=== PATIENT | female | born 1975 | race Caucasian/White ===

== ENCOUNTER 2021-04-14 16:04 | Outpatient (REF) | payer BC, SELFPAY ==
[2021-04-14 14:48] LABS: Abs Immature Grans 0.01 10^3/uL (0.0-0.06); Absolute Basophil Count 0.08 10^3/uL (0.0-0.2); Absolute Eosinophil Count 0.19 10^3/uL (0.0-0.7); Absolute Lymphocyte Count 1.69 10^3/uL (1.2-3.4); Absolute Neutrophil Count 3.74 10^3/uL (1.2-6.7); Basophils % 1.2; HCT 40.3 % (36.0-46.0); Immature Grans % 0.2; Lymphocytes % 26.4; MCHC 32.3 % (32.0-36.0); MCV 89.8 fL (80-95); MPV 11.6 fL (8.0-11.0); Monocytes % 10.9; Neutrophils % 58.3; Nucleated RBC 0 %; Platelet Count 304 10^3/uL (130-400); RBC 4.49 10^6/uL (3.93-5.22); RDW 13.5 % (11.7-14.6); RDW-SD 44.6 fL; WBC 6.41 10^3/uL (4.4-10.8)
[2021-04-14 14:49] LABS: ESR 1 mm/hr (0-20)
[2021-04-14 15:16] LABS: ALT 8 U/L (14-59); AST 9 U/L (15-37); Alkaline Phosphatase 58 U/L (46-116); Anion Gap 7.2 mmol/L (3-11); BUN 8 mg/dL (7-18); Bilirubin, Total 0.5 mg/dL (0.2-1.0); CO2 27.8 mmol/L (21.0-32.0); CREATININE 0.9 mg/dL (0.55-1.02); Calcium 9.1 mg/dL (8.5-10.1); Chloride 108 mmol/L (98-107); Glucose 86 mg/dL (74-106); Potassium 4.6 mmol/L (3.5-5.1); Sodium 143 mmol/L (136-145); TSH (W/Ref FT4) 1.05 uIU/mL (0.36-3.74)
== END 2021-04-14 16:05 | disposition home or self-care (01) ==
LOC: NCHCN 16:04
PROVIDERS: Visit Provider Family Medicine
DX: R53.83 Other fatigue (principal); Z86.16 Personal history of COVID-19; R06.00 Dyspnea, unspecified
CPT/HCPCS: 80053; 85652; 84443; 85025

== ENCOUNTER 2021-12-06 18:30 | Outpatient (REF) | payer BC, SELFPAY ==
[2021-12-06 16:27] LABS: Abs Immature Grans 0.02 10^3/uL (0.0-0.06); Absolute Basophil Count 0.08 10^3/uL (0.0-0.2); Absolute Eosinophil Count 0.34 10^3/uL (0.0-0.7); Absolute Lymphocyte Count 1.58 10^3/uL (1.2-3.4); Absolute Monocyte Count 0.68 10^3/uL (0.1-0.8); Absolute Neutrophil Count 3.84 10^3/uL (1.2-6.7); Basophils % 1.2; Eosinophils % 5.2; HCT 43.4 % (36.0-46.0); HGB 14.6 g/dL (11.2-15.7); Immature Grans % 0.3; Lymphocytes % 24.2; MCH 31.7 pg (27.0-33.0); MCHC 33.6 % (32.0-36.0); MCV 94 fL (80-95); MPV 11.5 fL (8.0-11.0); Monocytes % 10.4; Neutrophils % 58.7; Platelet Count 295 10^3/uL (130-400); RBC 4.61 10^6/uL (3.93-5.22); RDW 12.6 % (11.7-14.6); RDW-SD 43.8 fL; WBC 6.54 10^3/uL (4.4-10.8)
[2021-12-06 16:29] LABS: ESR 3 mm/hr (0-20)
[2021-12-06 19:19] LABS: C-Reactive Protein 0.08 mg/dL (0.0-0.3)
[2021-12-07 17:59] LABS: Rheumatoid Factor <8.6 IU/mL (<12.0)
[2021-12-08 10:54] LABS: Lyme Ab w Rflx to Lyme Confirm Negative (Negative)
[2021-12-08 15:24] LABS: ANA Interpretation Negative (Negative)
[2021-12-08 22:35] LABS: Anaplasma phagocytophilum Negative (Negative); B. miyamotoi PCR Negative (Negative); Babesia divergens/MO-1 Negative (Negative); Babesia duncani Negative (Negative); Babesia microti Negative (Negative); Ehrlichia chaffeensis Negative (Negative); Ehrlichia ewingii/canis Negative (Negative); Ehrlichia muris eauclairensis Negative (Negative)
== END 2021-12-06 18:31 | disposition home or self-care (01) ==
LOC: NCHCN 18:30
PROVIDERS: Visit Provider Family Medicine
DX: R53.83 Other fatigue (principal); M25.59 Pain in other specified joint
CPT/HCPCS: 85652; 87798; 85025; 86038; 86140; 86431; 86618

== ENCOUNTER 2022-05-19 14:50 | Outpatient (REF) | payer BC, SELFPAY | END 2022-05-19 14:51 | disposition home or self-care (01) | LOC: LBN 14:50 | PROVIDERS: Visit Provider Physician Assistant Medical | DX: J06.9 Acute upper respiratory infection, unspecified (principal) | CPT/HCPCS: 87081 ==

== ENCOUNTER 2023-06-24 08:57 | Day surgery (SDC) | payer BC, SELFPAY ==
--- NOTE | 2023-06-23 17:00 | W.PM.DSUDISC ---
Date of service: 06/24/23 Time of Service: 12:18 Discharge Plan Disposition Patient Disposition: Home Condition: Good Discharge Details Reason For Visit: screening colonoscopy Attending Provider: Del Woodall Primary Care Provider: Debbie Amaral Home Meds and New Rx's Prescriptions: Continued Probiotic Acidophilus 250 million cell capsule 1,000 mmu cells PO DAILY jd-7-qge-epa-fish oil-vit D3 [Fish Oil-Vit D3] 300-1,000-1,000 mg-mg-unit capsule PO multivitamin Tablet 1 tab PO DAILY Mirena 21 mcg/24 hours (8 yrs) 52 mg intrauterine device 1 device intrauterine ONCE Rx Instructions: as a single dose bupropion HCl 150 mg tablet sustained-release 12 hr 150 mg PO BID valacyclovir 500 mg tablet 500 mg PO DAILY PRN Discontinued bisacodyl [Dulcolax (bisacodyl)] 5 mg tablet,delayed release (DR/EC) 5 mg PO ONCE Qty: 4 0RF Rx Instructions: Colonoscopy Bowel Prep- Per Instructions polyethylene glycol 3350 17 gram/dose powder 238 g PO ONCE Qty: 238 0RF Rx Instructions: Colonoscopy Bowel Prep- Per Instructions Discharge Instructions Additional Instructions: Ana, we were able to complete your colonoscopy today without any difficulty. It was totally normal. I saw no evidence of polyps, tumors, or anything else out of the ordinary. I recommend a follow-up colonoscopy in 10 years to reduce her chances of colon cancer . 1. If tolerated, consume a soft, low fiber diet for 1-2 days. [address] Do not drive, drink alcohol, operate machinery, make critical decisions, or do activities that require coordination or balance for 24 hours. 3. Because air was put into your colon during the procedure, expelling air from your rectum (passing gas or farting) is normal. 4. You may not have a bowel movement for 1-3 days because of the colonoscopy prep. This is normal. 5. Go directly to the emergency room if you notice any of the following: Develop chills (warm to touch), or if you have a thermometer and your temperature is above 101 Difficulty breathing or difficultly swallowing Persistent vomiting Severe abdominal pain, other than gas cramps Severe chest pain Black, tarry stools Any bleeding ? exceeding one tablespoon 6. Call your physician if the site where your intravenous was started becomes red, swollen, painful, and warm to touch. 7. Your physician has reviewed your pre-procedure medications. Please continue to take those medications as previously ordered. You will be given specific information/education regarding any changes to your medications before leaving. Stand Alone Forms: Anesthesia Discharge InstEze Arshad (DSU) Activity:: Activity as Tolerated Diet:: As Tolerated Discharge Orders Discharge Orders: Discharge Order (Routine); Ordered 06/23/23 Ordered By: Del Woodall DS: Diagnosis Discharge Diagnosis (1) Screen for colon cancer: Status: Acute Asessment and Plan: Negative screening colonoscopy; recommend follow-up in 10 years
--- NOTE | 2023-06-23 17:02 | W.COLOREPORT ---
Date of service: 06/24/23 Time of Service: 12:19 Colonoscopy Report Date of procedure: 06/24/23 Pre-op diagnosis general: screening colonoscopy Post-op diagnosis procedure note: other (Negative screening colonoscopy) Procedure: Colonoscopy Surgeon: Del Woodall Anesthesia Type: General:No Airway Estimated blood loss (mL): 0 Pathology: none sent Complications: None Disposition: same day Indications: Ana is 48 years old and she needs her first screening colonoscopy for routine health maintanence. Prep: Miralax/Dulcolax Procedure Start Time: 11:38 Procedure End Time: 12:07 Retraction Time: 19 Findings: Negative screening colonoscopy Procedure Description: After the induction of monitored anesthetic care, and with the patient in left lateral decubitus position, I began by performing an external anorectal exam.? Perineum and skin were normal, as was the anal verge.? There was no evidence of external hemorrhoids.? Next, I performed a digital rectal exam.? I did not appreciate any abnormal findings.? Next, I advanced a colonoscope into the rectal vault.? I performed retroflexion.? This was normal.? Using insufflation, I then advanced the colonoscope beyond the rectal folds and into the sigmoid colon before advancing towards the cecum.?The scope was noted to be in the cecum by identification of the ileocecal valve and appendiceal orifice.? I then began withdrawing the colonoscope using repeated irrigation as necessary for full evaluation of the colonic mucosa. ?Once the scope was withdrawn to the level of the rectum, great care was taken to examine portions of the rectal folds.? I did not see any signs of tumors, polyps, or any other abnormalities. Finally, the scope was withdrawn and the patient was brought to the same-day surgery recovery unit as the anesthetic wore off. ?The findings and instructions were shared with the patient prior to discharge.
[2023-06-24 09:20] VITALS: BP 116/79; PULSE 85; RESP 18; TEMP 36.9; O2SAT 100
[2023-06-24] MEDS: Lactated Ringers 1,000 ML 80 ML IV (09:56)
--- NOTE | 2023-06-24 10:40 | W.ANESPRE ---
General Info Date of Service Date Performed: 06/24/23 Height: 5 ft 9 in Weight: 79 kg Body Mass Index (BMI): 25.7 Surgical Procedure: Operation Date: 06/24/23 10:50 Proposed Procedure Side Surgeon vincent Woodall MD Meds Allergies and Home Medications Allergies Allergy/AdvReac Type Severity Reaction Status Date / Time eggplant Allergy Unknown Uncoded 06/24/23 09:34 Home Medication Medication Instructions Recorded bupropion HCl 150 mg tablet,12 hr 150 mg PO BID 01/03/23 sustained-release levonorgestrel 21 mcg/24 hours (8 1 device intrauterine ONCE 01/03/23 yrs) 52 mg intrauterine device (Mirena) valacyclovir 500 mg tablet 500 mg PO DAILY PRN 01/03/23 Lactobacillus acidophilus 250 1,000 mmu cells PO DAILY 06/12/23 million cell capsule (Probiotic Acidophilus) multivitamin 1 tab PO DAILY 06/12/23 xs-2-nkk-epa-fish oil-vit D3 300 cap PO 06/12/23 mg-1,000 mg-1,000 unit capsule (Fish Oil-Vit D3) Current Visit Medications: Current Medications Generic Name Dose Route Start Last Admin Trade Name Freq PRN Reason Stop Dose Admin Hyoscyamine Sulfate 0.125 mg 06/23/23 17:03 Hyoscyamine 0.125 Mg Sl/Oral/Chew SL 07/23/23 17:02 DIRECTED PRN Ringer's Solution 1,000 mls @ 80 mls/hr 06/24/23 06:00 06/24/23 09:56 IV 07/19/23 23:59 80 mls/hr INFUSION DEVORAH Administration IV Miscellaneous Supplies 1 each 06/24/23 06:00 Iv Access IV 07/19/23 23:59 DIRECTED DEVORAH Ondansetron HCl 4 mg 06/23/23 17:03 Ondansetron 4 Mg/2 Ml Vial IVP 07/23/23 17:02 Q4H PRN PRN Nausea / Vomiting Sodium Chloride 0 ml 06/24/23 06:00 Normal Saline Flush 10 Ml Syr IV 07/19/23 23:59 PRN PRN Sodium Chloride 0 ml 06/24/23 06:00 Normal Saline 10 Ml Vial IJ 07/19/23 23:59 DIRECTED PRN Sterile Water 0 ml 11/27/23 06:00 Water,Injection,Sterile 10 Ml Vial IJ 07/19/23 23:59 DIRECTED PRN PFSH Active Problems Active Problems: Problem Status Onset Code Screen for colon cancer Z12.11 History of use of contraceptive intrauterine device (IUD) Z92.0 Hip pain, right M25.551 Perimenopausal N95.1 Medical History Medical History (Updated 06/23/23 @ 17:00 by Del Woodall MD) History of COVID-19 Tobacco Smoking/Tobacco Use Status: Never Alcohol Alcohol Intake: former Substance Use Substance use type: does not use Vital Signs and Lab Results Vital Signs Most Recent Vital Signs in EMR: Most Recent Vital Signs Temp Pulse Resp BP Pulse Ox 36.9 C 85 18 116/79 100 06/24/23 09:20 06/24/23 09:20 06/24/23 09:20 06/24/23 09:20 06/24/23 09:20 Point of Care Results Point of Care Results: POC- Test(urine) Negative 06/24/23 09:30 Lab Results Blood Type / Crossmatch: No Data to Display Complete Blood Count: No Data to Display Complete Metabolic Panel: No Data to Display Liver Function Panel: No Data to Display Coagulation Panel: No Data to Display Cardiac Panel: No Data to Display Arterial Blood Gas: No Data to Display Venous Blood Gas: No Data to Display Pancreas Panel: No Data to Display Thyroid Panel: No Data to Display Infectious Disease: No Data to Display Blood Cultures: No Data to Display Toxicology Panel: No Data to Display Panel: No Data to Display Anesthesia Assessment and Plan Anesthesia History Personal History: No History of Anesthesia Complications Family History: No Family History of Anesthesia Complications Exercise Tolerance Exercise Tolerance: Metabolic Equivalents>4 Pertinent Negatives Pertinent Negatives: No Symptoms of GERD, No Major Cardiovascular Symptoms or Complaints, No Major Pulmonary Symptoms or Complaints and No History of CVA/TIA Cardiac & Pulmonary Exam Cardiac Exam: Normal S1/S2 Heart Sounds Pulmonary Exam: Clear Bilateral Breath Sounds Implantable Cardiac Device Does patient have a Pacemaker or an ICD?: No Airway Exam Known Difficult Airway: No Mallampati Class: 2 Mouth Opening: Normal (> 3cm) Thyromental Distance: Greater than 3 cm Neck Range of Motion: Full ROM Neck Circumference: Normal Teeth Condition: Normal Dentition ASA Classification ASA Score: ASA 2 Emergency Case?: No NPO Status NPO Status: NPO Clears >2 hours, Solids >8 hours Status Status: Negative HCG Anesthesia Plan Resuscitation Status: Full Code Anesthesia Technique: General Anesthesia Airway Planned: Natural Airway Monitors Used: Standard Monitors Preoperative Comments:: History of motion sickness, loopy coming out of anesthesia from wisdom teeth
[2023-06-24 11:11] VITALS: BMI 25.7
[2023-06-24 12:16] VITALS: BP 100/63; PULSE 87; RESP 14; TEMP 36.6; O2SAT 98
[2023-06-24 12:43] VITALS: BP 111/79; PULSE 69; RESP 16; TEMP 36.6; O2SAT 100
--- NOTE | 2023-06-24 13:15 | W.ANESPOSTOP ---
Postoperative Evaluation Date, Time and Location Date Performed: 06/24/23 Time Performed: 12:58 Patient Location: Day Surgery Unit Vital Signs Most Recent Imported Vital Signs: Most Recent Vital Signs Temp Pulse Resp BP Pulse Ox 36.6 C 69 16 111/79 100 06/24/23 12:43 06/24/23 12:43 06/24/23 12:43 06/24/23 12:43 06/24/23 12:43 Pain Score Most Recent Pain Score: Most Recent Pain Score Pain Level 0 06/24/23 12:43 Assessment Mental Status: Awake (Alert & Oriented to Patient Baseline) Airway and Respiratory Function: Patent airway with normal (patient baseline) respiratory exam Cardiovascular Function: Hemodynamically Stable Hydration Status: Adequately Hydrated Nausea & Vomiting: No Nausea or Vomiting Pain: Pt. Denies Any Pain Peripheral Nerve Block: Patient did not receive a nerve block
== END 2023-06-24 13:39 | disposition home or self-care (01) ==
LOC: SUR 08:59
PROVIDERS: PCP Family Medicine; Visit Provider Surgery
PROC: 0DJD8ZZ Inspection of Lower Intestinal Tract, Via Natural or Artificial Opening Endoscopic (ICD-10-PCS; CPT 45378; principal; 2023-06-24 10:45)
DX: Z12.11 Encounter for screening for malignant neoplasm of colon (principal)
CPT/HCPCS: 45378; 81025; J2405

== ENCOUNTER 2023-07-01 15:21 | Emergency (ER) | payer BC, SELFPAY ==
[2023-07-01 15:23] VITALS: BP 128/75; PULSE 85; RESP 15; TEMP 37.1; O2SAT 98
--- OUTSIDE RECORDS SUMMARY | 2023-07-01 15:27 | XMS_ITS | CCD ---
Author Name Unknown Address [address] [place] [address] [phone] Organization Unknown Address [address] [place] [address] [phone] Care Team Providers Care Ride Attendant Name Role Phone KEN LEYVA Attending Physician [phone] Vital Signs Unknown or Not Available. Allergies Allergy Code Allergy Type Reaction Status EGGPLANT {Clinical monitorin g unavailable} 0 Food allergy ITCHING Active No Known Drug Allergies 0 No known drug allergies Active Procedures Unknown or Not Available. History of Immunizations Unknown or Not Available. Problems Unknown or Not Available. Results Unknown or Not Available. Active Medications Unknown or Not Available. Medications Administered During Visit Unknown or Not Available. Encounters Encounter Diagnosis Diagnosis Code Start Date Frequency of micturition R350 022 Social History Smoking Status Code Start Date End Date Never smoker [id number] Patient Decision Aids Unknown or Not Available. Discharge Instructions You were admitted to [facility] on 12/06/2021 12:48 with a principal diagnosis of Frequency of micturition You were discharged from [facility] on 02/08/2022 09:22 Should you have any questions prior to discharge, please contact a member of your healthcare team. If you have left the hospital and have any questions, please contact your primary care physician. Chief Complaint and Reason For Visit Unknown or Not Available. Function Status Unknown or Not Available. Plan of Care Unknown or Not Available. Referral/Transition of Care Unknown or Not Available.
--- OUTSIDE RECORDS SUMMARY | 2023-07-01 15:27 | XMS_ITS | CCD ---
Author Name Unknown Address [address] [place] [address] [phone] Organization Unknown Address [address] [place], [place] [id number] Care Team Providers Care Industrial Economist Name Role Phone KEN LEYVA Attending Physician [phone] KEN LEYVA Rounding (Secondary) Physici an [phone] Vital Signs Unknown or Not Available. Allergies [...] Encounters Encounter Diagnosis Diagnosis Code Start Date Canceled operative procedure [id number] Social History Smoking Status Code Start Date End Date Never smoker [id number] Patient Decision Aids Unknown or Not Available. Discharge Instructions You were admitted to [facility] on 11/22/2022 08:41 with a principal diagnosis of Procedure and treatment not carried out for other reasons You were discharged from [facility] on 11/22/2022 08:42 Should you have any questions prior to [...]
--- OUTSIDE RECORDS SUMMARY | 2023-07-01 15:27 | XMS_ITS | CCD ---
Author Name Unknown Address [address] [place] [address] [phone] Organization Unknown Address [address] [place], [place] [phone] Care Team Providers Care Senior Receptionist Name Role Phone KEN LEYVA Attending Physician [phone] KEN LEYVA Rounding (Secondary) Physici an [phone] Vital Signs Unknown or Not Available. Allergies [...] Encounters Encounter Diagnosis Diagnosis Code Start Date Encounter for gynecological examination (general) (routine) without abnormal findings [id number] 08/30/2021 Social History Smoking Status Code Start Date End Date Never smoker [id number] Patient Decision Aids Unknown or Not Available. Discharge Instructions You were admitted to [facility] on 08/30/2021 10:10 with a principal diagnosis of Encounter for gynecological examination (general) (routine) without abnormal findings You were discharged from [facility] on 08/30/2021 10:11 Should you have any questions prior to [...]
--- NOTE | 2023-07-01 15:45 | DI.RAD_ITS ---
Exam(s) XR FOOT LT COMPLETE EXAM: XR FOOT LT COMPLETE CLINICAL HISTORY: pain dorsal, impacted by dog. TECHNIQUE: 2D digital imaging was performed. Three views. COMPARISON: No exams were available for comparison FINDINGS: BONES: No acute fracture is present. No bony destructive lesion is seen. JOINTS: No dislocation present. SOFT TISSUE: Normal. IMPRESSION: Unremarkable radiographs of the left foot. DATA REPOSITORY: RADIATION DOSE DELIVERED:
[2023-07-01] MEDS: Amoxicillin 875/Clav. 125 TAB PO (16:01)
--- NOTE | 2023-07-01 16:36 | ED.GENADUL_ITS ---
Discharge Plan Disposition Patient Disposition: Home Condition: Stable Discharge Details Clinical Impression: Dog bite of left foot Primary Care Provider: Debbie Amaral ED Provider: Walter El Home Meds and New Rx's Prescriptions: New amoxicillin-pot clavulanate 875-125 mg tablet 1 tab PO BID Qty: 14 0RF Continued Probiotic Acidophilus 250 million cell capsule 1,000 mmu cells PO DAILY wc-9-yyu-epa-fish oil-vit D3 [Fish Oil-Vit D3] 300-1,000-1,000 mg-mg-unit capsule 1 cap PO DAILY multivitamin Tablet 1 tab PO DAILY Mirena 21 mcg/24 hours (8 yrs) 52 mg intrauterine device 1 device intrauterine ONCE Rx Instructions: as a single dose bupropion HCl 150 mg tablet sustained-release 12 hr 150 mg PO BID valacyclovir 500 mg tablet 500 mg PO DAILY PRN Discharge Instructions Instructions: Animal Bite (ED), Foot Contusion (ED) Additional Instructions: Protect your foot. Use crutches if walking is painful - weight bear as tolerated. Please contact your primary care physician to arrange follow-up. Return to the ER immediately for any worsening or new concerning symptoms. Referrals: Debbie Amaral [Primary Care Provider] - Medical Decision Making 48-year-old female here with accidental dog bite to left foot. Patient sustained small abrasion to the foot and suspected contusion versus fracture dorsal foot. X-ray of the foot to assess for fracture was interpreted by radiology: Unremarkable radiographs of the left foot. Tetanus immunization up-to-date per medical record. Will provide prophylactic treatment with Augmentin. Offered ibuprofen patient declined. Patient provided informed refusal of crutches and postoperative shoe. HPI General Date/Time Provider Initiated Documentation: 07/01/23 15:49 . Related Data Home Medications Medication Instructions Recorded Confirmed bupropion HCl 150 mg tablet,12 hr 150 mg PO BID 01/03/23 07/01/23 sustained-release levonorgestrel 21 mcg/24 hours (8 1 device intrauterine ONCE 01/03/23 07/01/23 yrs) 52 mg intrauterine device (Mirena) valacyclovir 500 mg tablet 500 mg PO DAILY PRN 01/03/23 07/01/23 Lactobacillus acidophilus 250 1,000 mmu cells PO DAILY 06/12/23 07/01/23 million cell capsule (Probiotic Acidophilus) multivitamin 1 tab PO DAILY 06/12/23 07/01/23 ao-9-lad-epa-fish oil-vit D3 300 1 cap PO DAILY 06/12/23 07/01/23 mg-1,000 mg-1,000 unit capsule (Fish Oil-Vit D3) amoxicillin 875 mg-potassium 1 tab PO BID #14 tabs 07/01/23 clavulanate 125 mg tablet Previous Rx's Medication Instructions Recorded amoxicillin 875 mg-potassium 1 tab PO BID #14 tabs 07/01/23 clavulanate 125 mg tablet Allergies Allergy/AdvReac Type Severity Reaction Status Date / Time eggplant Allergy Unknown Uncoded 07/01/23 15:28 General Stated Complaint: Orthopedic MALA: 4 PFSH All Active Problems (Updated 07/01/23 @ 16:38 by Walter El MD) Dog bite of left foot (Acute) Screen for colon cancer (Acute) History of use of contraceptive intrauterine device (IUD) (Acute) Hip pain, right (Acute) Perimenopausal (Acute) Medical History (Updated 07/01/23 @ 16:38 by Walter El MD) History of COVID-19 Surgical History (Updated 06/26/23 @ 07:42 by Francie Escobar) History of colonoscopy (~05/2023) Social History (Updated 06/12/23 @ 15:25 by BRIANA Sarah) Smoking/Tobacco Use Status: Never Smoking risk assessment performed?: Yes Alcohol Intake: current Alcohol Intake frequency: a few times a month Alcohol type: wine Drug use: Never Substance use type: does not use Housing: house Do you feel safe at home: Yes Do you feel safe in your relationship?: Yes Course Vital Signs Vital signs: Vital Signs Temperature 37.1 C 07/01/23 15:23 Pulse 85 07/01/23 15:23 Respiratory Rate 15 07/01/23 15:23 Blood Pressure 128/75 07/01/23 15:23 Pulse Oximetry 98 07/01/23 15:23 Temperature 37.1 C 07/01/23 15:23 Temperature Source Temporal Artery Scan 07/01/23 15:23 Pulse 85 07/01/23 15:23 Respiratory Rate 15 07/01/23 15:23 Respiratory Effort Normal 07/01/23 15:27 Blood Pressure 128/75 07/01/23 15:23 Blood Pressure Position Sitting 07/01/23 15:23 Pulse Oximetry 98 07/01/23 15:23 Oxygen Delivery Method Room Air 07/01/23 15:23 Oxygen Flow Rate 0 07/01/23 15:23 Pain Level 4 07/01/23 15:23 Lab/Test Results Lab/Test Results: POC- Test(urine) Negative PAWSS Have you Been Recently Intoxicated or Drunk Within the Last 30 days?: No Have you Ever Experienced Previous Episodes of Alcohol Withdrawal?: No Have you ever Experienced Withdrawal Seizures?: No Have you ever Experienced Delirium Tremens(DT)s?: No Have you ever undergone Alcohol Rehabilitation Treatment (i.e, inpt ot outpatient treatment programs)?: No Have you ever Experienced Blackouts?: No Have you ever Combined Alcohol with other Downers within the last 90 days?: No Have you ever Combined Alcohol with any other Substance of Abuse during the last 90 days?: No Result: 0
== END 2023-07-01 17:11 | disposition home or self-care (01) ==
PROVIDERS: Emergency Provider Student in an Organized Health Care Education/Training Program; PCP Family Medicine
DX: S90.812A Abrasion, left foot, initial encounter (principal); W54.0XXA Bitten by dog, initial encounter; Y93.K9 Activity, other involving animal care; Y92.017 Garden or yard in single-family (private) house as the place of occurrence of the external cause
CPT/HCPCS: 81025; 99283; 73630

== ENCOUNTER 2023-11-18 14:43 | Outpatient (REF) | payer BC, SELFPAY ==
[2023-11-18 15:35] LABS: ALT 25 U/L (14-59); AST 12 U/L (15-37); Albumin 3.5 g/dL (3.4-5.0); Alkaline Phosphatase 61 U/L (46-116); Anion Gap 8.6 mmol/L (3-11); BUN 15 mg/dL (7-18); Bilirubin, Total 0.3 mg/dL (0.2-1.0); CO2 27.4 mmol/L (21.0-32.0); CREATININE 0.9 mg/dL (0.55-1.02); Calcium 9.1 mg/dL (8.5-10.1); Calculated LDL 77 mg/dL (<100); Chloride 108 mmol/L (98-107); Cholesterol 152 mg/dL (<200); Estimated GFR 79.85 (mL/min/1.73m2); Glucose 92 mg/dL (74-106); HDL Cholesterol 65 mg/dL (40-60); Sodium 144 mmol/L (136-145); Total Protein 6.6 g/dL (6.4-8.2); Triglyceride 52 mg/dL (<150)
[2023-11-18 16:15] LABS: Vitamin D 25 Total 54.2 ng/mL (30-100)
== END 2023-11-18 14:44 | disposition home or self-care (01) ==
LOC: NCHCN 14:43
PROVIDERS: PCP Family Medicine; Visit Provider Family Medicine
DX: Z00.00 Encounter for general adult medical examination without abnormal findings (principal)
CPT/HCPCS: 80053; 80061; 82306

== ENCOUNTER → 2024-03-05 00:58 | Outpatient (CLI) | payer BC, SELFPAY ==
--- NOTE | 2024-03-05 | DI.DEXA_ITS ---
Exam(s) XR DEXA BONE DENSITY W/WO KISHA EXAM: XR DEXA BONE DENSITY W/WO KISHA CLINICAL HISTORY: PERIMENOPAUSAL DISORDER, N95.9 TECHNIQUE: Identification [employer] Horizon C densitometer analysis of left hip, lumbar spine and left forearm. Lat eral survey image of the thoracic and lumbar spine. COMPARISON: No exams were available for comparison FINDINGS: Lateral view of the thoracic and lumbar spine shows no evidence of compression fractures. Bone mineral density measurements of the lumbar spine correspond to a total T-score of -0.2, in the normal range. Bone mineral density measurements of the left hip correspond to a total T-score of -0.2, in the norm al range.. The femoral neck T-score is 0.2. Theleft forearm bone mineral density measurements correspond to a T-score of the distal 3rd of 0.1, in the normal range.. IMPRESSION: Normal bone mineral density.
--- OUTSIDE RECORDS SUMMARY | 2024-03-05 00:59 | XMS_ITS ---
Author Organization Unknown Address [address] [place] [address] [phone] Phone Care Team Providers Care Quality Control Chemist Name Role Phone GORDON Greer Attending Unavailable SIRIA Redd Primary Unavailable Social History Type Status Start Date End Date Code Code Syst em Smoking History Never smoker (Never Smoked) [id number] SNOMED CT Sex Female Hospital Discharge Instructions Should you have any questions prior to discharge, please contact a member of your healthcare team. If you have left the hospital and have any questions, please contact your primary care physician. Reason For Referral No Data Found Allergies and Adverse Reactions Allergy Substance Reaction Severity Start Date Concern Status Code Code System EGGPLANT Itching (SNOMED-CT: [id number]) Moderate Active No Known Drug Allergies Moderate Active [id number] SNOMED-CT Plan of Treatment MM SCREEN BILAT 03/16/2024 MM SCREEN BILAT 01/26/2022 Encounters Encounter Diagnosis Start Date Code Code Sys tem Encounter for gynecological examination (general) (routine) without abnormal findings 08/30/2021 SNOM ED-CT Personal Care Team Section Performer Name Performer Role Active Date Inactive Da te
--- OUTSIDE RECORDS SUMMARY | 2024-03-05 01:00 | XMS_ITS ---
Author Organization Unknown Address [address] [place] [address] [phone] Phone Care Team Providers Care Machine Silver Stripper Name Role Phone GORDON Greer Attending Unavailable SIRIA Redd Primary Unavailable Social History Type Status Start Date End Date Code Code Syst em Smoking History Never smoker (Never Smoked) [id number] SNOMED CT Sex Female Hospital Discharge Instructions Should you have any questions prior to discharge, please contact a member of your healthcare team. If you have left the hospital and have any questions, please contact your primary care physician. Reason For Referral No Data Found Allergies and Adverse Reactions Allergy Substance Reaction Severity Start Date Concern Status Code Code System EGGPLANT Itching (SNOMED-CT: 780267310) Moderate Active No Known Drug Allergies Moderate Active [id number] SNOMED-CT Plan of Treatment MM SCREEN BILAT 03/16/2024 MM SCREEN BILAT 01/26/2022 Encounters Encounter Diagnosis Start Date Code Code Sys tem Frequency of micturition 12/06/2021 [facility] MED-CT Personal Care Team Section Performer Name Performer Role Active Date Inactive Da te
--- OUTSIDE RECORDS SUMMARY | 2024-03-05 01:00 | XMS_ITS ---
Author Organization Unknown Address [address] [place] [phone] Phone Care Team Providers Care Histologic Technician Name Role Phone GORDON Greer Attending Unavailable SIRIA Redd Primary Unavailable Results MM SCREENING BILAT MAMMO W T ISABELLE W CAD - Completed: 01/26/2022 14:23 LOINC: Digital mammograms were inte rpreted according to the usual protocol including computer analysis with CADx system including tomosynthesis. MAMMOGRAM: Comparison is with prior examinations. No suspicious masses or microcalcifications are seen. The skin and axillae are unremarkable. There has been no significant change compared to the prior examinations. IMPRESSION: No evidence for malignancy. Yearly mammography is recommended. BI-RADS Assessment: Category 1. Negative. BREAST DENSITY: c. The breasts are heterogeneously dense which may obscure small masses. TECHNOLOGIST: Prisca Rosado, RT (R) Dictated by: MILAN RAI MD Transcribed by: AMY 01/26/22/15:59 [id number] Electronically Reviewed and Signed By: JESSICA RAI MD 02/07/22 09:04 Copy for: SIRIA Redd via fax Copy for: 185 HEALTH INFORMATION MGMT Social History Type Status Start Date End Date Code Code Syst em Smoking History Never smoker (Never Smoked) [id number] SNOMED CT Sex Female Hospital Discharge Instructions Should you have any questions prior to discharge, please contact a member of your healthcare team. If you have left the hospital and have any questions, please contact your primary care physician. Reason For Referral No Data Found Allergies and Adverse Reactions Allergy Substance Reaction Severity Start Date Concern Status Code Code System EGGPLANT Itching (SNOMED-CT: 413511151) Moderate Active No Known Drug Allergies Moderate Active [id number] SNOMED-CT Plan of Treatment MM SCREEN BILAT 03/16/2024 MM SCREEN BILAT 01/26/2022 Encounters Encounter Diagnosis Start Date Code Code Sys tem Encounter for screening mamm ogram for malignant neoplasm of breast 01/26/2022 SNOMED-CT Personal Care Team Section Performer Name Performer Role Active Date Inactive Da te
--- OUTSIDE RECORDS SUMMARY | 2024-03-05 01:01 | XMS_ITS | Encounter Summary ---
Author Organization [facility] Address [address] [place] [address] Care Team Providers Care Insurance Agent Name Role Phone Unavailable Primary Care Provider Unavailabl e Encounter Details Date Type Department Care Team (Late st Contact Info) Description 11/01/2004 13:09 EDT Hospital Encounter [facility] - Other [address] [place] [address] Yessenia Madrid NP [facility] [address] [facility], [facility] [address] [place] [phone] Social History Tobacco Use Types Packs/Day Years Used Date Smoking Tobacco: Never Assessed Sex and Gender Information Value Date Recorded Sex Assigned at Not on file Gender Identity Not on file Sexual Orientation Not on file documented as of this encounter Plan of Treatment Not on file documented as of this encounter Procedures Procedure Name Priority Date/Time Associated Diagnosis Comments JAIL JUDI- AMNIOTIC FLUID INDEX Routine 12/08/2004 12:00 EDT GROUP B STREPTOCOCCUS SUSCEPTIBILITY Routine 11/01/2004 9:06 EDT documented in this encounter Results * JAIL JUDI- AMNIOTIC FLUID INDEX (12/08/2004 12:00 EDT) Anatomical Region Laterality Modality Other 12/08/2004 12:0 0 EDT Narrative 03/24/2009 12:56 EDT JUDI Please refer to the separate [facility] report. Procedure Note Ye Lozano MD - 03/24/2009 JUDI Please refer to the separate [facility] report. Tessie Holloway MD [facility] [place] * GROUP B STREPTOCOCCUS SUSCEPTIBILITY (11/01/2004 9:06 EDT) Specimen Description Vaginal and Rectal [facility] Result NO GROUP B BETA STREPTOCOCCI ISOLATED [facility] Report Status Final [id number] [facility] 11/01/2004 9:06 EDT 11/02/2004 9:06 EDT Yessenia Madrid NP CNM HISTORICAL LAB FOR SQ LOAD [facility] [address] [place] [address] documented in this encounter Visit Diagnoses Not on filedocumented in this encounter
--- OUTSIDE RECORDS SUMMARY | 2024-03-05 01:01 | XMS_ITS | Encounter Summary ---
Author Organization [facility] Address [address] [place] [address] Care Team Providers Care Health Practice Manager Name Role Phone Cyndie Lopez MD Primary Care Provider [phone] Encounter Details Date Type Department Care Team (Late st Contact Info) Description 10/03/2009 Orders Only [facility] [phone] Kathleen Espitia CNM [address] [place] [address] [place] [address] Social History Tobacco Use Types Packs/Day Years Used Date Smoking Tobacco: Never Assessed Sex and Gender Information Value Date Recorded Sex Assigned at Not on file Gender Identity Not on file Sexual Orientation Not on file documented as of this encounter Plan of Treatment Not on file documented as of this encounter Procedures Procedure Name Priority Date/Time Associated Diagnosis Comments [facility] ROUTINE 10/03/2009 18:30 EST documented in this encounter Results * [facility] ROUTINE (10/03/2009 18:30 EST) Anatomical Region Laterality Modality Other 10/03/2009 18:3 0 EST 10/03/2009 20:40 EST Narrative 10/03/2009 20:40 EST Please refer to the separate [facility] report. ??Contact Maternal Medicine. Procedure Note 10/03/2009 Please refer to the separate [facility] report. Contact Maternal Medicine. Kathleen Espitia CNM [facility] ORDERABLE S documented in this encounter Visit Diagnoses Not on filedocumented in this encounter Care Teams Health Practice Manager Relationship Specialty Start Date End Date Cyndie Lopez MD [address] [place] [phone] PCP - General 10/03/09 documented as of this encounter
--- OUTSIDE RECORDS SUMMARY | 2024-03-05 01:01 | XMS_ITS | Encounter Summary ---
Author Organization [facility] Address [address] [place] [address] Care Team Providers Care Heel Burnisher Name Role Phone Cyndie Lopez MD Primary Care Provider [phone] Encounter Details Date Type Department Care Team (Late st Contact Info) Description 12/07/2021 Lab Requisition [facility] Pathology & Laboratory Medicine - [address] [id number] Outr Resulting Lab, Provider Social History Tobacco Use Types Packs/Day Years Used Date Smoking Tobacco: Never Assessed Sex and Gender Information Value Date Recorded Sex Assigned at Not on file Gender Identity Not on file Sexual Orientation Not on file documented as of this encounter Plan of Treatment Not on file documented as of this encounter Procedures Procedure Name Priority Date/Time Associated Diagnosis Comments LYME AB Routine 12/06/2021 9:55 EDT RHEUMATOID FACTOR Routine 12/06/2021 9:5 5 EDT ANTI NUCLEAR AB (LISA), IFA Routine 12/06/2021 9:55 EDT documented in this encounter Results * LYME AB (12/06/2021 9:55 EDT) Lyme Ab Negative Negative 12/08/2021 10:50 EDT [facility] Blood VENOUS BLOOD / Unknown 12/06/2021 9:55 EDT 12/07/2021 17:38 EDT Provider Outr Resulting Lab IMMUNOLOGY A ND SEROLOGY ORDERABLES Performing Organization Address [facility] Co de Phone Number [facility] [address] [place] [address] * RHEUMATOID FACTOR (12/06/2021 9:55 EDT) Pathologist [facility] Rheumatoid Factor <8.6 <12.0 IU/mL 12/07/2021 17:55 EDT [facility] Blood VENOUS BLOOD / Unknown 12/06/2021 9:55 EDT 12/07/2021 17:38 EDT Provider Outr Resulting Lab CHEMISTRY & BLOOD GAS ORDERABLES Performing Organization Address [facility] de Phone Number [facility] [address] [place] [address] * ANTI NUCLEAR AB (LISA), IFA (12/06/2021 9:55 EDT) Pathologist [facility] LISA Interpretation Negative Negative 2021 15:20 EDT [facility] Comment:No titer performed, LISA Screen is negative. Blood VENOUS BLOOD / Unknown 12/06/2021 9:55 EDT 12/07/2021 17:38 EDT Narrative [facility] - 12/08/2021 15:20 EDT Results were obtained with the INOVA NOVA Lite HEp-2 LISA Kit by indirect immunofluorescence. Provider Outr Resulting Lab IMMUNOLOGY A ND SEROLOGY ORDERABLES Performing Organization Address [facility] de Phone Number [facility] [address] [place] [address] documented in this encounter Visit Diagnoses Not on filedocumented in this encounter Care Teams Heel Burnisher Relationship Specialty Start Date End Date Cyndie Lopez MD [address] [place] [address] PCP - General 10/03/09 documented as of this encounter
--- OUTSIDE RECORDS SUMMARY | 2024-03-05 01:01 | XMS_ITS | Encounter Summary ---
Author Organization [facility] Address [address] [place] [address] Care Team Providers Care Finger Grip Machine Operator Name Role Phone Cyndie Lopez MD Primary Care Provider [phone] Encounter Details Date Type Department Care Team (Late st Contact Info) Description 04/11/2020 Lab Requisition [facility] Pathology & Laboratory Medicine - [address] [phone] Outr Resulting Lab, Provider Social History Tobacco [...] Procedure Name Priority Date/Time Associated Diagnosis Comments CHLAMYDIA/N. GONORRHOEAE AMPLIFIED NUCLEIC ACID Routine 04/11/2020 12:08 EDT documented in this encounter Results * CHLAMYDIA/N. GONORRHOEAE AMPLIFIED RNA (04/11/2020 12:08 EDT) Neisseria gonorrhoeae Result Negative Negative 04/12/2020 14:[address] [facility] Chlamydia trachomatis Result Negative Negative 04/12/2020 14:[address] [facility] Swab ENTIRE VAGINA / Unknown 04/11/2020 12:08 EDT 04/11/2020 22:38 EDT Provider Outr Resulting Lab MICROBIOLOGY - GENERAL ORDERABLES [facility] [address] [place] [address] documented in this encounter Visit Diagnoses Not on filedocumented in this encounter Care Teams Finger Grip Machine Operator Relationship Specialty Start Date End Date Cyndie Lopez MD [address] [place] [address] PCP - General 10/03/09 documented as of this encounter
--- OUTSIDE RECORDS SUMMARY | 2024-03-05 01:01 | XMS_ITS | Encounter Summary ---
Author Organization [facility] Address [address] [place] [address] Care Team Providers Care Linoleum Mechanic Name Role Phone Cyndie Lopez MD Primary Care Provider [phone] Encounter Details Date Type Department Care Team (Late st Contact Info) Description 03/01/2020 Lab Requisition [facility] Pathology & Laboratory Medicine - [address] [address] [address] [address] Encounter for screening for malignant neoplasm of cervix; Encounter for screening for human papillomavirus (HPV) Social History Tobacco Use Types Packs/Day Years Used Date Smoking Tobacco: Never Assessed Sex and Gender Information Value Date Recorded Sex Assigned at Not on file Gender Identity Not on file Sexual Orientation Not on file documented as of this encounter Plan of Treatment Not on file documented as of this encounter Procedures Procedure Name Priority Date/Time Associated Diagnosis Comments PAP TEST Today 02/29/2020 13:06 EDT HPV DNA DETECTION WITH GENOTYPING, PCR Today 02/29/2020 13:06 EDT documented in this encounter Results * HUMAN PAPILLOMAVIRUS (HPV) DETECTION-HIGH RISK TYPES (02/29/2020 13:06 EDT) HPV other High Risk types, PCR Negative Negative 03/18/2020 16:[address] [facility] Comment:No E6 or E7 mRNA is detected from HPV types 16,18,31,33,35,39,45,51,52,56,58,59,66, and 68 by landscape crew member mediated amplification. Papanicolaou smear specimen (specimen) CERVIX UTERI STRUCTURE / Unknown 02/29/2020 13:06 EDT 03/16/2020 11:12 EDT Sierra Gardner [facility] MICROBIOLOGY - GENE RAL ORDERABLES [facility] [address] [place] [id number] * PAP TEST (02/29/2020 13:06 EDT) Specimens A. Cervix and/or Endocervix , ThinPrep Imaging System with Manual Evaluation 03/18/2020 16:17 [facility] Specimen Adequacy Satisfactory for Evaluation - transformation zone component present 03/18/2020 16:17 [facility] General Categorization Negative for intraepithelial lesion or malignancy 03/18/2020 16:17 [facility] Attestation By the signature below, the attending physician certifies that they have personally conducted a gross and/or microscopic examination of the described specimens and rendered or confirmed the above diagnosis. 03/18/2020 16:17 [facility] at 1617 Clinical History SEE ORDER COMMENTS 03/18/2020 16:17 [facility] HPV The result for the Human Papillomavirus (HPV) Detection-High Risk Types is Negative. No E6 or E7 mRNA is detected from HPV types 16,18,31,33,35,39 ,45,51,52,56,58,5 9,66, and 68 by landscape crew member mediated amplification.Lucy ting was performed on specimen [id number] and was resulted on 03/18/2020 1545 EDT by PIA, LAB INSTRUMENT RESULTS IN 03/18/2020 16:[address] [facility] Scanned Images 03/18/2020 16:[address] [facility] Papanicolaou smear specimen (specimen) CERVIX UTERI STRUCTURE / Unknown 02/29/2020 13:06 EDT 03/02/2020 9:42 EDT Sierra Gardner CN PATHOLOGY ORDERABLE S [facility] [address] [place] [address] documented in this encounter Visit Diagnoses Diagnosis Encounter for screening for malignant neoplasm of cervix Screening for malignant neoplasm of the cervix Encounter for screening for human papillomavirus (HPV) Special screening examination for human papillomavirus (HPV) documented in this encounter Care Teams Linoleum Mechanic Relationship Specialty Start Date End Date Cyndie Lopez MD [address] [place] [address] PCP - General 10/03/09 documented as of this encounter
--- OUTSIDE RECORDS SUMMARY | 2024-03-05 01:01 | XMS_ITS | Encounter Summary ---
Author Organization [facility] Address [address] [place] [address] Care Team Providers Care Asphalt Spreader Name Role Phone Cyndie Lopez MD Primary Care Provider Encounter Details Date Type Department Care Team (Late st Contact Info) Description 04/17/2010 Results Only [facility] - [facility] ([facility] [address] [place], [place] [id number] Saundra Newsome CNM [address] [place] [address],[address] [place] [address] Social History Tobacco Use Types Packs/Day Years Used Date Smoking Tobacco: Never Assessed Sex and Gender Information Value Date Recorded Sex Assigned at Not on file Gender Identity Not on file Sexual Orientation Not on file documented as of this encounter Plan of Treatment Not on file documented as of this encounter Procedures Procedure Name Priority Date/Time Associated Diagnosis Comments CYTOPATHOLOGY Routine 04/17/2010 0:00 EDT documented in this encounter Results * CYTOPATHOLOGY (04/17/2010 0:00 EDT) Pathology Report: CYTOPATHOLOGY REPORT ? Reports generated via electronic interface contain original data; ? however they are lacking the format of the original report. ? Caution should be taken when reading/interpreti ng unformatted reports. ? Name: ? JOSH, GEOFFREY ? Accession #: ? [id number] ? : ? 1975 (Age: 35) ??F ?Collect Date: ? 04/17/2010 ? Location: ? [facility] ? Receive Date: ? 04/18/2010 ? Provider: SAUNDRA SEBASTIAN CNM ? Copy to: ? Final Report ? SPECIMEN ADEQUACY ? Satisfactory for Evaluation ? - transformation zone component present ? - scant squamous epithelial component secondary to excessive blood ? GENERAL CATEGORIZATION ? Negative for Intraepithelial Lesion or Malignancy ? Menstural/Pregnanc y Status: ??Post ? Previous Gynecologic Pathology: HPV: + 12/09 ? Treatment History: Colposcopy: 10 yrs ago ? Other: Additional clinical information: ABN PAP wnl since ? HPVDX - HPV testing requested regardless of diagnosis on current ThinPrep Pap ?? test. ? Specimen/Source: ??Pap Test, Cervix/Endocervix, ThinPrep Imaging System with ? manual evaluation ? Document reviewed and electronically signed by: ? Nael Cortes, CT(ASCP) ? Report ??Date: 04/24/2010 15:36 ? HPV with Pap Test ? Date Ordered: ? 04/24/2010 ? Status: ?? Signed Out ?Date Complete: ? 04/26/2010 ? By: ??System Interface ? Date Reported: ? 04/26/2010 ? Interpretation ? RESULT: Positive for one or more of HPV types 16,18,31,33,35,39, 45, ? 51,52,56,58,59, or 68. These high/intermediate risk HPV ? types are associated with dysplasia and some cervical ? cancers. ? Comments ? Document reviewed and electronically signed by: ? System Interface ? Report date: 04/26/2010 ? By the signature above, the attending physician certifies that he/she has ? personally conducted a gross and/or microscopic examination of the described ? specimens and rendered or confirmed the above diagnosis. ? End of Report ? [facility] 04/17/2010 04/18/2010 Saundra Newsome CNM PATHOLOGY ORDERABLES Performing Organization Address City/State/[facility] Co de Phone Number [facility] [address] [place] [address] documented in this encounter Visit Diagnoses Not on filedocumented in this encounter Care Teams Asphalt Spreader Relationship Specialty Start Date End Date Cyndie Lopez MD [address] [place] [phone] PCP - General 10/03/09 documented as of this encounter
--- OUTSIDE RECORDS SUMMARY | 2024-03-05 01:01 | XMS_ITS | Encounter Summary ---
Author Organization [facility] Address [address] [place] [address] Care Team Providers Care Laborer Orchard Name Role Phone Unavailable Primary Care Provider Unavailabl e Encounter Details Date Type Department Care Team (Late st Contact Info) Description 01/24/2005 21:51 EDT Hospital Encounter [facility] - Other [address] [place] [address] Dimple Gomes MD [address] [place] [address] [place] [address] Social History Tobacco Use Types Packs/Day Years Used Date Smoking Tobacco: Never Assessed Sex and Gender Information Value Date Recorded Sex Assigned at Not on file Gender Identity Not on file Sexual Orientation Not on file documented as of this encounter Plan of Treatment Not on file documented as of this encounter Visit Diagnoses Not on filedocumented in this encounter
--- OUTSIDE RECORDS SUMMARY | 2024-03-05 01:01 | XMS_ITS | Encounter Summary ---
Author Organization [facility] Address [address] [place] [address] Care Team Providers Care Dextrine Mixer Name Role Phone Cyndie Lopez MD Primary Care Provider [phone] Michael Jernigan MD Primary Care Provider [phone] Encounter Details Date Type Department Care Team (Late st Contact Info) Description 08/21/2004 Results Only [facility] [address] [place] [address] Dimple Gomes MD [address] [place] [address] [place] [address] Social History Tobacco Use Types Packs/Day Years Used Date Smoking Tobacco: Never Assessed Sex and Gender Information Value Date Recorded Sex Assigned at Not on file Gender Identity Not on file Sexual Orientation Not on file documented as of this encounter Plan of Treatment Not on file documented as of this encounter Procedures Procedure Name Priority Date/Time Associated Diagnosis Comments GLUCOSE-1HR GESTATIONAL SCREEN Routine 08/21/2004 10:41 EST COMPLETE BLOOD COUNT Routine 08/21/2004 10:41 EST documented in this encounter Results * GLUCOSE-1HR GESTATIONAL SCREEN (08/21/2004 10:41 EST) Glucose-1hr Gest Scn 94 50 - 135 mg/dl [facility] Glucose Dose 50 g [facility] 08/21/2004 10:4 1 EST 08/21/2004 11:43 EST Dimple Gomes MD PACKAGES & DNA PROBE ORDERABLES [facility] [address] [place] [address] * HEMAGRAM (08/21/2004 10:41 EST) WBC 12.19 4.0 - 12.4 K/cmm [facility] RBC 4.08 3.86 - 5.04 M/cmm [facility] Hemoglobin 12.5 11.6 - 15.2 gm/dl [facility] HCT 36.8 34.9 - 44.4 % [facility] MCV 90 81 - 98 fl [facility] MCH 30.6 26.7 - 33.3 pg [facility] MCHC 34.0 32.1 - 35.9 gm/dl [facility] PLT 276 141 - 320 K/cmm [facility] RDW-CV 12.5 11.7 - 14.6 % [facility] 08/21/2004 10:4 1 EST 08/21/2004 11:43 EST Dimple Gomes MD HEMATOLOGY & PF4 ORD ERABLES Performing Organization Address City/[facility] Co de Phone Number [facility] [address] [place] [address] documented in this encounter Visit Diagnoses Not on filedocumented in this encounter Care Teams Dextrine Mixer Relationship Specialty Start Date End Date Cyndie Lopez MD [address] [place] [address] PCP - General 10/03/09 Michael Jernigan MD [address] [place] [phone] PCP - General 09/21/09 10/02/09 documented as of this encounter
--- OUTSIDE RECORDS SUMMARY | 2024-03-05 01:01 | XMS_ITS | Encounter Summary ---
Author Organization [facility] Address [address] [place] [address] Care Team Providers Care Ingot Buggy Operator Name Role Phone Cyndie Lopez MD Primary Care Provider [phone] Encounter Details Date Type Department Care Team (Late st Contact Info) Description 01/15/2013 Results Only [facility] Laboratory Services - [facility] [place] [address], [place] [address] Cisco Moran [address] [place], [place] [address] Social History Tobacco Use Types Packs/Day Years Used Date Smoking Tobacco: Never Assessed Sex and Gender Information Value Date Recorded Sex Assigned at Not on file Gender Identity Not on file Sexual Orientation Not on file documented as of this encounter Plan of Treatment Not on file documented as of this encounter Procedures Procedure Name Priority Date/Time Associated Diagnosis Comments PAP TEST- RESULT ONLY Routine 01/15/2013 0:00 EDT documented in this encounter Results * PAP TEST- RESULT ONLY (01/15/2013 0:00 EDT) Pathology Report: CYTOPATHOLOGY REPORT Reports generated via electronic interface contain original data; however they are lacking the format of the original report. Caution should be taken when reading/interpreti ng unformatted reports. Name: ? GEOFFREY MORENO ? Accession #: ? [id number] ? : ? 1975 (Age: 37) ??F ?Collect Date: ? 01/15/2013 ? Location: ? [facility] ? Receive Date: ? 01/19/2013 ? Provider: CISCO MORAN CNM Copy to: ? Final Report SPECIMEN ADEQUACY ? Satisfactory for Evaluation - transformation zone component present GENERAL CATEGORIZATION ? Negative for Intraepithelial Lesion or Malignancy INTERPRETATION ? Reactive cellular changes associated with inflammation present (includes repair). Hormonal/Contracep tive status: Intrauterine device: mirena Specimen/Source: ??Pap Test, Cervix/Endocervix, ThinPrep Imaging System with manual evaluation Document reviewed and electronically signed by: ? JAMMIE OCAMPO MD ? Report ??Date: 01/23/2013 20:09 HPV with Pap Test ? Date Ordered: ? 01/23/2013 ? Status: ?? Signed Out ?Date Complete: ? 01/27/2013 ? By: ??System Interface ? Date Reported: ? 01/27/2013 ? Interpretation RESULT: Positive for high or intermediate risk HPV. E6 OR E7 mRNA from one or more types of HPV types 16,18,31, 33,35,39,45,51,52, 56,58,59,66, and 68 is detected by christian science healer mediated amplification. High and intermediate risk HPV types are associated with most squamous intraepithelial lesions and cervical cancers. Comments Document reviewed and electronically signed by: ? System Interface ? Report date: 01/27/2013 By the signature above, the attending physician certifies that he/she has personally conducted a gross and/or microscopic examination of the described specimens and rendered or confirmed the above diagnosis. End of Report [facility] 01/15/2013 01/19/2013 Cisco Moran CNM PATHOLOGY ORDERABLES Performing Organization Address City/State/[facility] Co de Phone Number [facility] [address] [place] [address] documented in this encounter Visit Diagnoses Not on filedocumented in this encounter Care Teams Ingot Buggy Operator Relationship Specialty Start Date End Date Cyndie Lopez MD [address] [place] [address] PCP - General 10/03/09 documented as of this encounter
--- OUTSIDE RECORDS SUMMARY | 2024-03-05 01:01 | XMS_ITS | Encounter Summary ---
Author Organization [facility] Address [address] [place] [address] Care Team Providers Care Dye Penetrant Testing Technician Name Role Phone Unavailable Primary Care Provider Unavailabl e Encounter Details Date Type Department Care Team (Late st Contact Info) Description 12/08/2004 15:05 EDT - 12/11/2004 11:59 EDT Hospital Encounter [facility] [address] [place], [place] [phone] Kathleen Last MD [address] [facility], [address] [place] [phone] Discharge Disposition: Home-Health Care Svc Social History Tobacco Use Types Packs/Day Years Used Date Smoking Tobacco: Never Assessed Sex and Gender Information Value Date Recorded Sex Assigned at Not on file Gender Identity Not on file Sexual Orientation Not on file documented as of this encounter Discharge Disposition Disposition Code Departure Means Destination Home-Health Care Svc documented in this encounter Plan of Treatment Not on file documented as of this encounter Procedures Procedure Name Priority Date/Time Associated Diagnosis Comments HOLD SST Routine 12/08/2004 16:00 EDT HOLD PURPLE TOP Routine 12/08/2004 16:00 EDT COMPLETE BLOOD COUNT AND DIFFERENTIAL Routine 12/08/2004 16:00 EDT documented in this encounter Results * HOLD SST (12/08/2004 16:00 EDT) Hold SST Hold for further testing. Specimen will be held for 30 days. [facility] 12/08/2004 16:0 0 EDT 12/08/2004 16:19 EDT Yessenia Madrid TIA [facility] INFO SERVICE AN D SUPPORT & PHONE RESULT Performing Organization Address City/[facility]/ZIP Co de Phone Number [facility] [address] [place] [address] * HOLD PURPLE TOP (12/08/2004 16:00 EDT) Hold Purple Top EDTA for hematology will be discarded after 48 hours, differential not available after 12 hours. [facility] 12/08/2004 16:0 0 EDT 12/08/2004 16:19 EDT Yessenia Madrid TIA [facility] INFO SERVICE AN D SUPPORT & PHONE RESULT Performing Organization Address [facility] de Phone Number [facility] [address] [place] [address] * (ABNORMAL) HEMAGRAM AND DIFFERENTIAL (12/08/2004 16:00 EDT) WBC 15.07(H) 4.0 - 12.4 K/cmm [facility] RBC 4.02 3.86 - 5.04 M/cmm [facility] Hemoglobin 12.2 11.6 - 15.2 gm/dl [facility] HCT 35.3 34.9 - 44.4 % [facility] MCV 88 81 - 98 fl [facility] MCH 30.4 26.7 - 33.3 pg [facility] MCHC 34.6 32.1 - 35.9 gm/dl [facility] PLT 267 141 - 320 K/cmm [facility] RDW-CV 13.9 11.7 - 14.6 % [facility] % Neutrophils 81.3(H) 45.5 - 79.7 % [facility] % Lymphocytes 11.8(L) 15.0 - 46.8 % [facility] % Monocytes 5.8 1.8 - 12.0 % [facility] % Eosinophils 0.8 0.6 - 6.9 % [facility] % Basophils 0.3 0.2 - 1.4 % [facility] ABS Neutrophils 12.25(H) 2.20 - 8.85 K/cmm [facility] ABS Lymphs 1.78 1.09 - 3.30 K/cmm [facility] ABS Monocytes 0.87(H) 0.1 - 0.8 K/cmm [facility] ABS Eosinophils 0.12 0.03 - 0.61 K/cmm [facility] ABS Basophils 0.04 0.01 - 0.11 K/cmm [facility] Type of Diff: Automated [facility] 12/08/2004 16:0 0 EDT 12/08/2004 16:19 EDT Yessenia Madrid NP CNM PACKAGES & DNA PROB E ORDERABLES Performing Organization Address City/State/[facility] Co de Phone Number [facility] [address] [place] [address] documented in this encounter Visit Diagnoses Not on filedocumented in this encounter
--- OUTSIDE RECORDS SUMMARY | 2024-03-05 01:01 | XMS_ITS ---
Author Organization Unknown Address [address] [place] [phone] Phone Care Team Providers Care Infrastructure Technician Name Role Phone GORDON Greer Attending Unavailable SIRIA Redd Primary Unavailable Social History Type Status Start Date End Date Code Code Syst em Smoking History Never smoker (Never Smoked) [id number] SNOMED CT Sex Female Hospital Discharge Instructions Should you have any questions prior to discharge, please contact a member of your healthcare team. If you have left the hospital and have any questions, please contact your primary care physician. Reason For Referral No Data Found Allergies and Adverse Reactions Allergy Substance Reaction Severity Start Date Concern Status Code Code System EGGPLANT Itching (SNOMED-CT: 095385696) Moderate Active No Known Drug Allergies Moderate Active 947597749 SNOMED-CT Plan of Treatment MM SCREEN BILAT 03/16/2024 MM SCREEN BILAT 01/26/2022 Encounters Encounter Diagnosis Start Date Code Code Sys tem Canceled operative procedure 11/22/2022 [id number] SNOMED-CT Personal Care Team Section Performer Name Performer Role Active Date Inactive Da te
--- OUTSIDE RECORDS SUMMARY | 2024-03-05 01:01 | XMS_ITS | Encounter Summary ---
Author Organization [facility] Address [address] [place] [address] Care Team Providers Care Multifocal Button Generator Name Role Phone Michael Jernigan MD Primary Care Provider [phone] Encounter Details Date Type Department Care Team (Late st Contact Info) Description 05/14/2005 Before PRISM Converted Visit (Maple) [facility] - Maple conversion [address] [place] [address] Candy Berman PA [address] [phone] Social History Tobacco Use Types Packs/Day Years Used Date Smoking Tobacco: Never Assessed Sex and Gender Information Value Date Recorded Sex Assigned at Not on file Gender Identity Not on file Sexual Orientation Not on file documented as of this encounter Progress Notes * Candy Daly PA - 09/29/2009 1944 EST DIVISION OF DERMATOLOGY PROGRESS/FOLLOWUP NOTE - 05/14/2005 SUBJECTIVE: This 30-year-old white female returns to the clinic today for re-evaluation of her warts. She was last seen by me on February 13, 2005 at which point she had an 8 mm wart on her second left distal fingertip. She has been using Compound W with duct tape 6 out of 7 nights per week. She states that she isdiscouraged with the results. Although she thinks it is a little more thin, it has not gone away. She has a pjri-[id number]-kbx who she is breast feeding and is not interested in any medication that may be harmful to him. She has had this wart frozen several times in the past by her primary care provider without much difference. She would also like me to address plantar warts she has on her bilateral plantar feet which she has not tried treating in the past. She otherwise has no questions or concerns regarding her skin at this time. She denies any constitutional symptoms today. OBJECTIVE: On exam this is an otherwise healthy appearing 30-year-old fair-skinned white female in no apparentdistress with appropriate affect and demeanor. She is accompanied by her 5-month-old son. On examination of her left second distal fingertip she has a 6 mm verrucous, flat-topped, thin papule within which are coagulated blood vessels. On examination of the plantar aspects of her bilateral feet she has on her right medial ball of her foot four verrucous, flat-topped, 3-5 mm papules and on her leftlateral distal foot again plantar aspect, she has two 3-4 mm verrucous, flat-topped papules. All ofthese have coagulated blood vessels within them. ASSESSMENT: Verrucae. PLAN: Patient education and reassurance. I did try to explain to the patient that the wart on her left fingertip is smaller and thinner than what I described in my last dictation. I recommended liquid nitrogen cryosurgery to all of these warts. Patient consent obtained after discussion of expected reaction and outcome. This was performed with three freeze/thaw cycles with good results to all of her abov e-stated verrucae without adverse event. Wound care instructions given verbally. The patient is to follow up in the future if problems arise. She would rather have follow up treatments with her primary care provider every three weeks, or if she wishes to start using the Compound-W she may continue using this six out of seven nights per week with duct tape and follow up on as-needed basis. Signed by Danyelle Akins MD 05/25/2005 13:29 Reviewed by Candy Daly PA-C 05/25/2005 12:14 Deanna Colindres PA-CAnita L Licata, MD Dictated by: Candy Daly PA-C Danyelle L MD Tashi D: - Candy Daly PA-C A - lb Job ID: Document ID: [id number] cc: documented in this encounter Plan of Treatment Not on file documented as of this encounter Visit Diagnoses Not on filedocumented in this encounter Care Teams Multifocal Button Generator Relationship Specialty Start Date End Date Michael Jernigan MD [address] [place] [address] [address] [place] [address] PCP - General 09/21/09 10/02/09 documented as of this encounter
--- OUTSIDE RECORDS SUMMARY | 2024-03-05 01:01 | XMS_ITS | Encounter Summary ---
Author Organization [facility] Address [address] [place] [address] Care Team Providers Care Custom Protection Officer Name Role Phone Unavailable Primary Care Provider Tara lakhani Encounter Details Date Type Department Care Team (Late st Contact Info) Description 06/12/2004 14:11 EST Hospital Encounter [facility] - Other [address] [place], [place] [address] Lisa Caceres, TIA [address], [facility] [address] [place] [address] Discharge Disposition: Auto Discharge Social History Tobacco Use Types Packs/Day Years Used Date Smoking Tobacco: Never Assessed Sex and Gender Information Value Date Recorded Sex Assigned at Not on file Gender Identity Not on file Sexual Orientation Not on file documented as of this encounter Discharge Disposition Disposition Code Departure Means Destination Auto Discharge documented in this encounter Plan of Treatment Not on file documented as of this encounter Procedures Procedure Name Priority Date/Time Associated Diagnosis Comments SKILLED NURSING ROUTINE Routine 07/03/2004 15:00 EST documented in this encounter Results * SKILLED NURSING ROUTINE (07/03/2004 15:00 EST) Anatomical Region Laterality Modality Other 07/03/2004 15:0 0 EST Narrative 03/30/2009 11:30 EDT 29067,S/D Please refer to [facility]. Procedure Note Truong Chow MD - 03/30/2009 13426,S/D Please refer to the [facility]. Lisa SIERRA SKILLED NURSING ORD ERABLES documented in this encounter Visit Diagnoses Not on filedocumented in this encounter
--- OUTSIDE RECORDS SUMMARY | 2024-03-05 01:01 | XMS_ITS | Encounter Summary ---
Author Organization [facility] Address [address] [place] [address] Care Team Providers Care Credit Office Manager Name Role Phone Unavailable Primary Care Provider Unavailabl e Encounter Details Date Type Department Care Team (Late st Contact Info) Description 09/19/2009 15:46 EST - 09/19/2009 15:50 EST Hospital Encounter [facility] - Other [address] [place] [address] Kathleen Espitia, ROSALINDA [address] [facility] [place] [address] Discharge Disposition: Home or Self Care Social History Tobacco Use Types Packs/Day Years Used Date Smoking Tobacco: Never Assessed Sex and Gender Information Value Date Recorded Sex Assigned at Not on file Gender Identity Not on file Sexual Orientation Not on file documented as of this encounter Discharge Disposition Disposition Code Departure Means Destination Home or Self Care documented in this encounter Plan of Treatment Not on file documented as of this encounter Visit Diagnoses Not on filedocumented in this encounter
--- OUTSIDE RECORDS SUMMARY | 2024-03-05 01:01 | XMS_ITS | Data Portability ---
Author Organization [place] [facility] Address [address] [place] [facility] [place] [address] Assessment No assessment recorded. Plan of Treatment Reminders Order Date Submit Date Provider Last Modified By Organization Details Last Modified Time Details Appointments Follow Up 2023 03:10P Eric AMARAL Not available Not available Not available Nurse Visit 2024 09:00A Eric Navarro Nursing Staff Not available Not available Not available Annual Wellness Exam 2024 08:00A Eric AMARAL Not available Not available Not available Lab lipid panel, serum - 1Y [id number] [facility] (Registration ), [address] [place] [address] [place], [address], 11/20/2023 06:14:33 CMP, serum or plasma - 1Y [id number] [facility] (Registration ), [address] [place] [address] [place], [address], 11/20/2023 06:14:33 vitamin D, 25-hydrox y, total, serum - Y [id number] [facility] (Registration ), [address] [place] [address] [place], [address], 11/20/2023 06:14:33 Referral None recorded. Procedures None recorded. Surgeries None recorded. Imaging None recorded. Medication Orders None recorded. Patient TargetsNo targets recorded. Patient InstructionsNo instructions recorded. Reason for Referral None Reported. Results Created Date Observation Date Name Description Value Unit Range Abnormal Flag LastModifiedBy Organization Detail LastModifiedTime 11/18/19 24 11/18/2023 COMPR EHENS JERED METAB OLIC PANEL calcium 9.1 mg/dL 8.5-10 .1 normal Not Available [address] [place], [address] 11/19/2023 01:42:08 11/18/19 24 11/18/2023 COMPR EHENS JERED METAB OLIC PANEL glucose 92 mg/dL 74-106 normal Not Available [address] [place], [address] 11/19/2023 01:42:08 11/18/19 24 11/18/2023 COMPR EHENS JERED METAB OLIC PANEL BUN 15 mg/dL 7-18 normal Not Available [address] [place], [address] 11/19/2023 01:42:08 11/18/19 24 11/18/2023 COMPR EHENS JERED METAB OLIC PANEL creatinine 0.9 mg/dL 0.55-1 .02 normal Not Available [address] [place], [address] 11/19/2023 01:42:08 11/18/19 24 11/18/2023 COMPR EHENS JERED METAB OLIC PANEL estimated GFR 79.85 mL/min /1.73m 2 Not Available [address] [place], [address] 11/19/2023 01:42:08 11/18/19 24 11/18/2023 COMPR EHENS JERED METAB OLIC PANEL total protein 6.6 g/dL 6.4-8. 2 normal Not Available [address] [place], [address] 11/19/2023 01:42:08 11/18/19 24 11/18/2023 COMPR EHENS JERED METAB OLIC PANEL albumin 3.5 g/dL 3.4-5. 0 normal Not Available [address] [place], [address] 11/19/2023 01:42:08 11/18/19 24 11/18/2023 COMPR EHENS JERED METAB OLIC PANEL bilirubin, total 0.3 mg/dL 0.2-1. 0 normal Not Available [address] [place], [address] 11/19/2023 01:42:08 11/18/19 24 11/18/2023 COMPR EHENS JERED METAB OLIC PANEL alk phos 61 U/L 46-116 normal Not Available [address] [place], [address] 11/19/2023 01:42:08 11/18/19 24 11/18/2023 COMPR EHENS JERED METAB OLIC PANEL sodium 144 mmol/ L 136-14 5 normal Not Available [address] [place], [address] 11/19/2023 01:42:08 11/18/19 24 11/18/2023 COMPR EHENS JERED METAB OLIC PANEL potassium 5.0 mmol/ L 3.5-5. 1 normal Not Available [address] [place], [address] 11/19/2023 01:42:08 11/18/19 24 11/18/2023 COMPR EHENS JERED METAB OLIC PANEL chloride 108 mmol/ L 98-107 high Not Available [address] [place], [address] 11/19/2023 01:42:08 11/18/19 24 11/18/2023 COMPR EHENS JERED METAB OLIC PANEL CO2 27.4 mmol/ L 21.0-3 2.0 normal Not Available [address] [place], [address] 11/19/2023 01:42:08 11/18/19 24 11/18/2023 COMPR EHENS JERED METAB OLIC PANEL anion gap 8.6 mmol/ L 3-11 normal Not Available [address] [place], [address] 11/19/2023 01:42:08 11/18/19 24 11/18/2023 COMPR EHENS JERED METAB OLIC PANEL AST 12 U/L 15-37 low Not Available [address] [place], [address] 11/19/2023 01:42:08 11/18/19 24 11/18/2023 COMPR EHENS JERED METAB OLIC PANEL ALT 25 U/L 14-59 normal Not Available [facility] [address] [place], [address] 11/19/2023 01:42:08 11/18/19 24 11/18/2023 LIPID 2 cholesterol 152 mg/dL <200 Not Available [address] [place], [address] 11/19/2023 01:42:08 11/18/19 24 11/18/2023 LIPID 2 triglyceride 52 mg/dL <150 Not Available [address] [place], [address] 11/19/2023 01:42:08 11/18/19 24 11/18/2023 LIPID 2 HDL cholesterol 65 mg/dL 40-60 Not Available German hayes [address] [place], [address] 11/19/2023 01:42:08 11/18/19 24 11/18/2023 LIPID 2 calculated LDL 77 mg/dL <100 Not Available Patrice nguyễn [address] [place], [address] 11/19/2023 01:42:08 11/18/19 24 11/18/2023 VITAM IN D 25 TOTAL vitamin D 25 total 54.2 NG/mL 30-100 normal Not Available [address] [place], [address] 11/19/2023 02:15:16 Result Notes None recorded. Problems Name Status Onset Date Resolution Date Notes Provider Name and Address Organization Details Recorded Time Premenstrual tension syndrome Active 2014 SELMA Farias [facility] 4 14:45:28 Acute conjunctivitis Completed 201403/31/2015 Problem Code: H10.30; Problem Code Type: ICD-10; Not Available [facility] 3 04:48:06 Contraception care management Active 2018 Radha Seibold null, [facility]. 4 14:44:22 [facility] infection [facility] [address] [facility] [facility] 14:44[facility]31 Adult health examination [facility] 4 14:44:09 Lateral epicondylitis of right humerus Completed 201907/28/2020 06/29/2020 - Comments only - Debbie Amaral MD - Patient reports that she is using a tennis elbow brace and finds that it is been helpful and this is beginning to settle down. Problem Code: M77.11; Problem Code Type: ICD-10; Not Available [facility] 3 04:48:06 History of SARS-CoV-2 Active 2020 Radhaher Rocha [facility] 4 14:44:41 Fatigue Completed 202007/14/2021 Problem Code: R53.83; Problem Code Type: ICD-10; Not Available [facility] 3 04:48:06 Dyspnea Completed 202004/17/2021 Problem Code: R06.00; Problem Code Type: ICD-10; Not Available [facility] 3 04:48:07 [facility] pain [facility] 4 14:44:54 Pain in right hip joint Active 2022 [facility]. 4 14:45:07 Parosmia Active 2022 [facility]. 4 14:45:18 Anxiety disorder Active 2022 [facility]. 4 14:44:17 Screening for malignant neoplasm of colon Active 2022 [facility] 4 14:45:32 Acute pharyngitis Completed 201406/26/2019 Problem Code: J02.9; Problem Code Type: ICD-10; Not Available [facility] 3 04:48:08 Disorder of skin and/or subcutaneous tissue Completed 201511/21/2022 Problem Code: L98.9; Problem Code Type: ICD-10; Not Available [facility] 3 04:48:08 Acute pharyngitis Completed 202111/21/2022 Problem Code: J02.9; Problem Code Type: ICD-10; Not Available [facility] 3 04:48:09 Acute upper respiratory infection Completed 202111/21/2022 Problem Code: J06.9; Problem Code Type: ICD-10; Not Available [facility] 3 04:48:10 Cough Completed 202111/21/2022 Problem Code: R05.8; Problem Code Type: ICD-10; Not Available [facility] 3 04:48:10 Fatigue Completed 202111/21/2022 Problem Code: R53.83; Problem Code Type: ICD-10; Not Available [facility] 3 04:48:10 Streptococcal sore throat Completed 201506/26/2019 Problem Code: J02.0; Problem Code Type: ICD-10; Not Available [facility] 3 04:48:10 Perimenopausal disorder Active 2023 DEBBIE AMARAL MD [address], [place], [address] , [facility] 4 10:04:02 Problem Notes None recorded. Medical Equipment None Reported. Medications Name Sig Start Date Stop Date Status Note LastModified by Organization Details LastModified Time amoxicilli n 500 mg capsule Take 1 cap by mouth three times daily 05/25 completed Not Available Not Available Not Available Mirena 21 mcg/24 hr (up to 8 years) 52 mg intrauteri ne device 2014 active Not Available Not Available Not Avai lable bupropion HCl SR 150 mg tablet,12 hr sustained- release TAKE ONE TABLET BY MOUTH TWICE A DAY 2023 active Not Available Not Available Not Avai lable doxycyclin e hyclate 100 mg capsule Take 1 capsule by mouth twice a day 05/26 completed Not Available Not Available Not Available fluoxetine 10 mg tablet Take 1 tab daily 09/12 completed Not Available Not Available Not Available Diflucan 150 mg tablet Take 1 tablet by mouth single dose Take with onset of symptoms , Repeat in 3 days if still symptoma tic. 05/22 completed Not Available Not Available Not Available penicillin V potassium 500 mg tablet take 1 tablet twice daily for 10 days 07/19 completed Not Available Not Available Not Available valacyclov ir 500 mg tablet TAKE ONE TABLET BY MOUTH EVERY DAY 2023 active Not Available Not Available Not Avai lable bupropion HCl 100 mg tablet Take 1 tab by mouth twice daily 2018 active from [facility] Not Available Not Available Not Avai lable amoxicilli n 875 mg tablet take 1 tablet twice daily 04/03 completed Not Available Not Available Not Available bisacodyl 5 mg tablet,del ayed release TAKE ONE TABLET BY MOUTH ONCE FOR COLONOSC OPY BOWEL PREP PER INSTRUCT IONS 11/24 completed Not Available Not Available Not Available polyethyle ne glycol 3350 17 gram/dose oral powder TAKE 238GM BY MOUTH FOR COLONOSC OPY BOWEL PREP 11/24 completed Not Available Not Available Not Available fluoxetine 20 mg capsule 1 tab daily. 08/21 completed [facility]. Not Available Not Available Not Available amoxicilli n 875 mg-potassi um clavulanat e 125 mg tablet TAKE ONE TABLET BY MOUTH TWICE A DAY 11/24 completed Not Available Not Available Not Available Mirena 2014 active Not Available Not Available Not Avai lable Zithromax Z-Jesus 10/11 completed Not Available Not Available Not Available Vitals Date Recorded Body height Systolic blood pressure Diastolic blood pressure Provider Name and Address Organization Details Last Updated DateTime 11/18/2023 171.704 cm 110 mm[Hg] 72 mm[Hg] RONNIE MILLER CMA [facility] 11/18/2023 07:49:20 Date Recorded Body height Body mass index (BMI) Body weight Body temperature Oxygen saturation Oxygen saturation in Arterial blood by Pulse oximetry Heart rate Respiratory rate Systolic blood pressure Diastolic blood pressure Provider Name and Address Organization Details Last Updated DateTime 171.704 cm 28.2 kg/m2 48034.4 g 97.2 [degF] 97 % 97 % 90 /min 16 /min 120 mm[Hg] 60 mm[Hg] ISAI LOPEZ RN [facility] 07:57:43 Social History Question Answer Notes LastModified by Organizat ion Details LastModified Time Tobacco Smoking Status Never Smoker ISAI LOPEZ RN null, [facility] 11/25/2023 07:59:22 Would You Say That, In General, Your Health Is Very Good [email or web address] Information not available 11/25/2023 Women Aged 18-50 - Would You Like To Become In The Next Year? (Female Patients Only) No [email or web address] Information not available 11/25/2023 How Often Does Anyone, Including Family, Physically Hurt You? Never [email or web address] Information not available 11/25/2023 How Often Does Anyone, Including Family, Insult Or Talk Down To You? Never [email or web address] Information no t available 11/25/2023 How Often Does Anyone, Including Family, Threaten You With Harm? Never [email or web address] Information not available 11/25/2023 How Often Does Anyone, Including Family, Scream Or Curse At You? Never Information not available 11/25/2023 Within The Past 12 Months, You Worried That Your Food Would Run Out Before You Got Money To Buy More. Never True [email or web address] Information n ot available 11/25/2023 Within The Past 12 Months, The Food You Bought Just Didn't Last And You Didn't Have Money To Get More. Never True Information not available 11/25/2023 How Hard Is It For You To Pay For The Very Basics Like Food, Housing, Medical Care, And Heating? Would You Say It Is: Not Hard At All [email or web address] Information not available 11/25/2023 In The Past 12 Months, Has Lack Of Reliable Transportation Kept You From Medical Appointments, Meetings, Work Or From Getting Things Needed For Daily Living? No [email or web address] Information not available 11/25/2023 What Is Your Housing Situation Today? I Have Housing. Information not available 11/25/2023 How Often In The Past Year Have You Used Marijuana (including Smoking, Vaping, Dabbing, Or Edibles)? Never Information not available 11/25/2023 How Often In The Past Year Have You Used Prescription Medications That Were Not Prescribed To You? Never [email or web address] Information not available 11/25/2023 How Often In The Past Year Have You Taken Your Own Prescription Medication More Than The Way It Was Prescribed Or For Different Reasons Than Its Intended Purpose? Never [email or web address] Information not available 11/25/2023 How Often In The Past Year Have You Used Other Drugs (for Example, Heroin, Cocaine, Meth, Salvia, Inhalants)? Never Information not available 11/25/2023 Have You Ever Used IV Drugs? No [email or web address] Information not available 11/25/2023 Date Of Most Recent SBINS 11/25/2023 [email or web address] Information not available 11/25/2023 What Was The Date Of Your Most Recent Tobacco Screening? 11/25/2023 [email or web address] Information n ot available 11/25/2023 Has Tobacco Cessation Counseling Been Provided? No [email or web address] Information not available 11/25/2023 Do You Or Have You Ever Used Any Other Forms Of Tobacco Or Nicotine? No [email or web address] Information not available 11/25/2023 Sex: Female Functional Status None recorded. Mental Status None recorded. Family History Relationship Description Onset Age of this Age Resolved Age Notes Mother Family history of osteoporosis Father Family history of se izure disorder Medical History No medical history recorded. Gynecological HistoryNo gynecological history recorded. Obstetrics History GPAL:G 0 P 0 0 0 0 Immunizations Vaccine Type Date Status Provider Name and Address Organization Details Recorded Time Td (adult), 2 Lf tetanus toxoid, preservative free, adsorbed 06/10/2020 completed Not Available [facility] 06/07/2023 04:12:18 Tdap 03/15/2010 completed Not Available [facility] 04:12:18 Influenza, split virus, trivalent, preservative 04/13/2015 completed Not Available [facility] 06/07/2023 04:12:19 Influenza, split virus, trivalent, preservative 04/14/2018 completed Not Available [facility] 06/07/2023 04:12:19 Influenza, split virus, trivalent, preservative 05/06/2017 completed Not Available [facility] 06/07/2023 04:12:19 Influenza, split virus, quadrivalent, PF 05/23/2020 completed Not Available [facility] 06/07/2023 04:12:20 COVID-19, mRNA, LNP-S, PF, 100 mcg/0.5mL dose or 50 mcg/0.25mL dose 06/03/2021 completed Not Available [facility] 06/07/20 04:12:21 COVID-19, mRNA, LNP-S, PF, 30 mcg/0.3 mL dose 10/03/2020 completed Not Available [facility] 06/07/2023 04:12:21 COVID-19, mRNA, LNP-S, PF, 30 mcg/0.3 mL dose 10/31/2020 completed Not Available [facility] 06/07/2023 04:12:21 Hep B, unspecified formulation 11/17/2008 completed Not Available [facility] 06/07/2023 04:12:21 Hep B, unspecified formulation 05/11/2008 completed Not Available [facility] 06/07/2023 04:12:22 Hep B, unspecified formulation 06/15/2008 completed Not Available [facility] 06/07/2023 04:12:22 influenza, unspecified formulation 04/11/2016 completed Not Available [facility] 06/07/2023 04:12:22 influenza, unspecified formulation 05/29/2019 completed Not Available [facility] 06/07/2023 04:12:22 influenza, unspecified formulation 06/29/2010 completed Not Available [facility] 06/07/2023 04:12:22 COVID-19, mRNA, LNP-S, PF, 30 mcg/0.3 mL dose 11/25/2023 completed ISAI LOPEZ RN [facility], [facility] 11/25/2023 08:37:04 Past Encounters Encounter ID Performer Location Encounter Start Date Encounter Closed Date Diagnosis/Indication Diagnosis SNOMED-CT Code [id number] RONNIE MILLER CMA [address] [address] 11/18/2023 07:40:29 11/18/2023 07:52:10 Adult health examination [id number] DEBBIE AMARAL MD [address] [address] 11/25/2023 07:40:57 11/25/2023 08:36:56 Adult health examination [id number] Health Concerns Section Related Observation LastModified by Organization Detai ls LastModified Time None Recorded Concern Status LastModified by Organization Details LastModified Time None Recorded Advance Directives Directive None Recorded Payers Encounter Date Sequence Insurance Name Policy Number Policy Rodriguez Covered Member ID Rodriguez Member ID Guarantor Name 11/18/2023 1 [place] [facility] [id number] Ana Arsalan [id number] Ana Arsalan 11/25/2023 1 [place] [facility] [id number] Ana Arsalan [id number] Ana Arsalan Notes Date Note Type Note Provider Name and Address Organization Details Recorded Time 11/25/2023 text/html HPI Notes: Is a healthy active 48-year-old female comes in today for general well exam. She had fasting blood work done prior to this appointment and we went over those results. 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 We will send for her records. She is eating a healthy diet she goes a garden. She exercises regularly she does not smoke. She is up-to-date on her dental and vision care. She states that her menstrual cycles have changed a little and they have gotten a little harder and this last when she had was quite intense despite having the Mirena IUD. It is now 2 years left on the hormones in it. She is also had an upper respiratory infection that started about 4 weeks ago in the beginning she had a lot of coughing sore throat sinus congestion her ears felt plugged that has since improved. Though she still has some wheezing especially when she is doing physically active thanks. MD [address], [place], [address], [facility]. 11/25/2023 08:28:16 OBGyn Episode No OBEpisode recorded.
--- OUTSIDE RECORDS SUMMARY | 2024-03-05 01:01 | XMS_ITS | Encounter Summary ---
Author Organization [facility] Address [address] [place] [address] Care Team Providers Care Granite Sandblaster Apprentice Name Role Phone Unavailable Primary Care Provider Unavailabl e Encounter Details Date Type Department Care Team (Late st Contact Info) Description 05/18/2004 9:40 EDT Hospital Encounter [facility] - Other [address] [place] [address] [facility] Molina, [facility] [place], [place] [id number] Social History Tobacco Use Types Packs/Day Years [...]
--- OUTSIDE RECORDS SUMMARY | 2024-03-05 01:01 | XMS_ITS | Encounter Summary ---
Author Organization [facility] Address [address] [facility] [place] [address] Care Team Providers Care Assistant Sales Director Name Role Phone Debbie Amaral MD Primary Care Provider [phone] Reason for Visit * Reason Comments Skin Check Encounter Details Date Type Department Care Team (Late st Contact Info) Description 08/24/2016 10:30 AM EST Office Visit Dermatology at [address] [place] [address] Christiano Head MD [address] [facility], [place] [address] [facility] Social History Tobacco Use Types Packs/Day Years Used Date Smoking Tobacco: Never Sex and Gender Information Value Date Recorded Sex Assigned at Not on file Gender Identity Not on file Sexual Orientation Not on file documented as of this encounter Progress Notes * Christiano Head MD - 08/24/2016 10:30 AM EST Problem is a mole check. Ana is a 41-year-old woman who is referred today by Debbie Amaral for evaluation of mole on the right lateral breast. It has been there for as long as she can remember and seems to have been getting a little bit thicker over time. She would like to have this checked and have a general skin check. She has never had any personal or family history of skin cancer or melanoma. Physical examination reveals a pleasant 41-year-old woman who is here today with her significant other, Javier. She has a 9 mm junctional melanocytic nevus on the far right lateral breast. It has even pigmentation, very regular margins and well-defined margins, and appears benign by the AJCC criteria. Examination of the arms, the chest, the back, the face is otherwise benign. She is starting to develop a number of small sort of lentigos on the lateral cheeks. She has an irritated tag on the right axillary vault. Otherwise, examination today is benign. She does not desire examination of her legs. ASSESSMENT AND PLAN: Benign melanocytic nevus right lateral breast and benign skin examination. a. Reassured patient about benign appearance of this. b. Do not feel that it needs to be excised. c. Continue sun protection precautions. d. I recommend I see her again on a p.r.n. basis. cc: Debbie Amaral MD documented in this encounter Plan of Treatment Not on file documented as of this encounter Visit Diagnoses Diagnosis Nevus Benign neoplasm of skin, site unspecified documented in this encounter Care Teams Assistant Sales Director Relationship Specialty Start Date End Date Debbie Amaral MD [address] [place] [address] PCP - General Family Medicine 08/24/16 documented as of this encounter
--- OUTSIDE RECORDS SUMMARY | 2024-03-05 01:01 | XMS_ITS | Clinical Summary ---
Author Organization [facility] Address [address] [place] [address] Care Team Providers Care Utility Porter Name Role Phone Cyndie Lopez MD Primary Care Provider [phone] Social History Tobacco Use Types Packs/Day Years Used Date Smoking Tobacco: Never Assessed Sex and Gender Information Value Date Recorded Sex Assigned at Not on file Gender Identity Not on file Sexual Orientation Not on file Plan of Treatment Health Maintenance Due Date Last Done Comments Hepatitis C Screen 1975 Hepatitis B Vaccine (1 of 3 - 19+ 3-dose series) 01/20 COVID-19 Vaccine ( season) 2023 Care Teams Utility Porter Relationship Specialty Start Date End Date Cyndie Lopez MD [address] [place] [address] PCP - General 10/03/09
--- OUTSIDE RECORDS SUMMARY | 2024-03-05 01:01 | XMS_ITS | Referral Summary ---
Author Organization [facility] Address [address] [place] [address] Care Team Providers Care Network Professional Name Role Phone Cyndie Lopez MD Primary Care Provider [phone] Social History Tobacco Use Types Packs/Day Years Used Date Smoking Tobacco: Never Assessed Sex and Gender Information Value Date Recorded Sex Assigned at Not on file Gender Identity Not on file Sexual Orientation Not on file Plan of Treatment Not on file Care Teams Network Professional Relationship Specialty Start Date End Date Cyndie Lopez MD [address] [place] [address] PCP - General 10/03/09
--- OUTSIDE RECORDS SUMMARY | 2024-03-05 01:01 | XMS_ITS | Encounter Summary ---
Author Organization [facility] Address [address] [place] [address] Care Team Providers Care Field Sales Consultant Name Role Phone Michael Jernigan MD Primary Care Provider [phone] Encounter Details Date Type Department Care Team (Late st Contact Info) Description 02/13/2005 Before PRISM Converted Visit (Maple) [facility] - Maple conversion [address] [place] [address] Candy Berman PA [address] [address] Social History Tobacco Use Types Packs/Day Years Used Date Smoking Tobacco: Never Assessed Sex and Gender Information Value Date Recorded Sex Assigned at Not on file Gender Identity Not on file Sexual Orientation Not on file documented as of this encounter Plan of Treatment Not on file documented as of this encounter Visit Diagnoses * Evaluation - Candy Daly PA - 09/29/2009 6690 EST DIVISION OF DERMATOLOGY NEW PATIENT EVALUATION - 02/13/2005 SUBJECTIVE: This is the initial clinic visit for this 30 year old white female evaluation of a growing resilient wart on the left forefinger. Patient states that she has tried liquid nitrogen at her doctors office while she was over the past year, several attempts. 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 She has never tried Compound W or [id number]-nlivbds wart treatments. She also has a few warts on the feet thatshe would rather I not look at, as she is in somewhat of a hurry today with her nine week old baby. She states she is otherwise. She is on vitamins only and denies any constitutional symptoms today. For past medical history, current medications, medication allergies, family and social history and review of systems, please see dermatology intake sheet on chart. OBJECTIVE: On examination, this is a healthy-appearing 30 year old fair-skinned, white female in noapparent distress, appropriate affect and demeanor, accompaniedby her nine week old infant. On the left hand, on the left 2nddistal fingertip, there is an 8 mm. verrucous, flat-topped papule within which are coagulated blood vessels. ASSESSMENT: Verruca. PLAN: 1. Patient education and reassurance. At this time, since patient does not wash her hands frequently during the night, recommendedthat she pare down the warts once a day in the evening, apply Compound W to all of the warts in question, and occlude them with duct tape. She is to do this six outof seven nights per week. When the warts fall off, she is to continue doing this for an additional two to three weeks. She is well aware that these are viral and can be spread if she picks at them and comes in contact with a crack in the skin. She showed a good understanding of this conversation. 2. She may followup with me in three months for re-evaluation and alternative treatment options discussion. Signed by Lopez Ramos MD 03/06/2005 14:38 Reviewed by BRIANA Milian 02/26/2005 12:54 Jillian García PAGlenn Goldman, MD Dictated by: BRIANA Milian Lopez Ramos MD D: - BRIANA Milian P - mr Job ID: Document ID: [id number] cc: MD Neal Vasquez MD documented in this encounter Care Teams Field Sales Consultant Relationship Specialty Start Date End Date Michael Jernigan MD [address] [place] [address] PCP - General 09/21/09 10/02/09 documented as of this encounter
--- OUTSIDE RECORDS SUMMARY | 2024-03-05 01:01 | XMS_ITS | Encounter Summary ---
Author Organization [facility] Address [address] [place] [address] Care Team Providers Care Surveying Teacher Name Role Phone Cyndie Lopez MD Primary Care Provider [phone] Michael Jernigan MD Primary Care Provider [phone] Encounter Details Date Type Department Care Team (Late st Contact Info) Description 05/18/2004 Results Only [facility] - Maple conversion [address] [place] [address] Tona Molina CNM [address] [place], [place] [address] Social History Tobacco Use Types Packs/Day Years Used Date Smoking Tobacco: Never Assessed Sex and Gender Information Value Date Recorded Sex Assigned at Not on file Gender Identity Not on file Sexual Orientation Not on file documented as of this encounter Plan of Treatment Not on file documented as of this encounter Procedures Procedure Name Priority Date/Time Associated Diagnosis Comments PROFILE Routine 05/18/2004 15:0 3 EDT HIV 1/2 ANTIGEN AND ANTIBODY, 4TH GENERATION Routine 05/18/2004 15:03 EDT BACTERIAL CULTURE, URINE Routine 05/18/2004 14:52 EDT N. GONORRHOEAE AMPLIFIED PROBE Routine 05/18/2004 7:17 EDT ZZCHLAMYDIA TRACHOMATIS AMPLIFIED PROBE Routine 05/18/2004 7:17 EDT CYTOPATHOLOGY Routine 05/18/2004 0:00 EDT documented in this encounter Results * HIV ANTIBODY (05/18/2004 15:03 EDT) HIV 1/2 Antibody NONREACT. NR [facility] 05/18/2004 15:0 3 EDT 05/18/2004 15:06 EDT Sandra Dunham DO IMMUNOLOGY AND SEROL OGY ORDERABLES [facility] [address] [place] [address] * PROFILE (05/18/2004 15:03 EDT) ABO and Rh Type O POS IDALIA [facility] Antibody Screen Neg FLE [facility] WBC 10.85 4.0 - 12.4 K/cmm [facility] RBC 4.31 3.86 - 5.04 M/cmm [facility] Hemoglobin 13.2 11.6 - 15.2 gm/dl [facility] HCT 38.0 34.9 - 44.4 % [facility] MCV 88 81 - 98 fl [facility] MCH 30.7 26.7 - 33.3 pg [facility] MCHC 34.8 32.1 - 35.9 gm/dl [facility] PLT 302 141 - 320 K/cmm [facility] RDW-CV 12.5 11.7 - 14.6 % [facility] % Neutrophils 76.4 45.5 - 79.7 % [facility] % Lymphocytes 15.4 15.0 - 46.8 % [facility] % Monocytes 6.7 1.8 - 12.0 % [facility] % Eosinophils 1.1 0.6 - 6.9 % [facility] % Basophils 0.4 0.2 - 1.4 % [facility] ABS Neutrophils 8.29 2.20 - 8.85 K/cmm [facility] ABS Lymphs 1.67 1.09 - 3.30 K/cmm [facility] ABS Monocytes 0.72 0.1 - 0.8 K/cmm [facility] ABS Eosinophils 0.12 0.03 - 0.61 K/cmm [facility] ABS Basophils 0.04 0.01 - 0.11 K/cmm [facility] Type of Diff: Automated [facility] Hepatitis B Surface Ag Neg [facility] Syphilis Sero (RPR) NONREACT. NR Dils [facility] Rubella IgG Scr Antibody detected [facility] 05/18/2004 15:0 3 EDT 05/18/2004 15:06 EDT Tona Molina CNM PACKAGES & DNA PROBE ORDERABLES Performing Organization Address [facility] Co de Phone Number [facility] [address] [place] [address] * BACTERIAL CULTURE, URINE (05/18/2004 14:52 EDT) Specimen Description Urine [facility] Result No growth [facility] Report Status Final [id number] [facility] 05/18/2004 14:5 2 EDT 05/18/2004 17:00 EDT Tona Molina CNM MICROBIOLOGY - GENER AL ORDERABLES Performing Organization Address [facility] Co de Phone Number [facility] [address] [place] [address] * N. GONORRHOEAE AMPLIFIED PROBE (05/18/2004 7:17 EDT) Result No Neisseria gonorrhoeae DNA detected by trust accounts supervisor mediated amplification. [facility] Report Status Final [id number] [facility] Specimen Description Cervix [facility] 05/18/2004 7:17 EDT 05/19/2004 7:17 EDT Tona Molina CNM MICROBIOLOGY - GENER AL ORDERABLES Performing Organization Address [facility] Co de Phone Number [facility] [address] [place] [address] * CHLAMYDIA TRACHOMATIS AMPLIFIED PROBE (05/18/2004 7:17 EDT) Specimen Description Cervix [facility] Result No Chlamydia trachomatis DNA detected by trust accounts supervisor mediated amplification. [facility] Report Status Final [id number] [facility] 05/18/2004 7:17 EDT 05/19/2004 7:17 EDT Tona Tracy TELLEZ MICROBIOLOGY - GENER AL ORDERABLES [facility] [address] [place] [address] * CYTOPATHOLOGY (05/18/2004 0:00 EDT) Pathology Report: CYTOPATHOLOGY REPORT Reports generated via electronic interface contain original data; however they are lacking the format of the original report. Caution should be taken when reading/interpreti ng unformatted reports. Name: ? GEOFFREY MORENO ? Accession #: ? [id number] : ? 1975 (Age: 29) ??F ?Collect Date: ? 05/18/2004 Location: ? [facility] ? Receive Date: ? 05/19/2004 Provider: ?TONA SIDDIQUIKaren VASQUEZ Copy to: ? Specimen/Source: ?ThinPrep Pap Test, Cervix/Endocervix Last Menstrual Period: ? 02/24/04 Menstrual/Pregnanc y Status: ? Previous Gynecologic Pathology: ? Yes Other: ? HPVA - HPV testing requested if ASC-US on the current ThinPrep Pap test. ? SPECIMEN ADEQUACY ? Satisfactory for Evaluation - transformation zone component present GENERAL CATEGORIZATION ? Negative for Intraepithelial Lesion or Malignancy ? Document reviewed and electronically signed by: ? YEYO Benoit(ASCP) ? Report Date: ??05/25/2004 11:05 End of Report [facility] 05/18/2004 05/19/2004 Tona Molina CNM PATHOLOGY ORDERABLES Performing Organization Address City/State/[facility] Co de Phone Number [facility] [address] [place] [address] documented in this encounter Visit Diagnoses Not on filedocumented in this encounter Care Teams Surveying Teacher Relationship Specialty Start Date End Date Cyndie Lopez MD [address] [place] [address] PCP - General 10/03/09 Michael Jernigan MD [address] [place] [address] [address] [place] [address] PCP - General 09/21/09 10/02/09 documented as of this encounter
--- OUTSIDE RECORDS SUMMARY | 2024-03-05 01:01 | XMS_ITS | Encounter Summary ---
Author Organization [facility] Address [address] [place] [address] Care Team Providers Care Dramatic Coach Name Role Phone Cyndie Lopez MD Primary Care Provider Encounter Details Date Type Department Care Team (Late st Contact Info) Description [address] [facility] Services - [facility] [address] [place], [place] [address] Saundra Cortes CNM [address] [place] [address],[address] [place] [id number] Social History Tobacco Use Types Packs/Day Years [...] Diagnosis Comments PAP TEST- RESULT ONLY Routine 2014 0:00 EDT documented in this encounter Results * PAP TEST- RESULT ONLY (2014 0:00 EDT) Pathology Report: CYTOPATHOLOGY REPORT Reports generated via electronic interface contain original data; however they are lacking the format of the original report. Caution should be taken when reading/interpreti ng unformatted reports. Name: ? GEOFFREY MORENO ? Accession #: ? [id number] ? : ? 1975 (Age: 39) ??F ?Collect Date: ? 2014 ? Location: ? [facility] ? Receive Date: ? 01/22/2014 ? Provider: SAUNDRA CORTES CN Copy to: ? Final Report SPECIMEN ADEQUACY ? Satisfactory for Evaluation - transformation zone component present GENERAL CATEGORIZATION ? Negative for Intraepithelial Lesion or Malignancy INTERPRETATION ? Reactive cellular changes associated with inflammation present (includes repair). Hormonal/Contracep tive status: Intrauterine device: mirena Previous Gynecologic Pathology: HPV: + Other: Additional clinical information: normal pap 12/2012, hx of hpv Specimen/Source: ??Pap Test, Cervix/Endocervix, ThinPrep Imaging System with manual evaluation Document reviewed and electronically signed by: ? JAMMIE OCAMPO MD ? Report ??Date: 02/04/2014 18:29 HPV with Pap Test ? Date Ordered: ? 02/04/2014 ? Status: ?? Signed Out ?Date Complete: ? 02/08/2014 ? By: ??System Interface ? Date Reported: ? 02/08/2014 ? Interpretation RESULT: Positive for high or intermediate risk HPV. E6 OR E7 mRNA from one or more types of HPV types 16,18,31, 33,35,39,45,51,52, 56,58,59,66, and 68 is detected by marine extension agent mediated amplification. High and intermediate risk HPV types are associated with most squamous intraepithelial lesions and cervical cancers. Comments Document reviewed and electronically signed by: ? System Interface ? Report date: 02/08/2014 By the signature above, the attending physician certifies that he/she has personally conducted a gross and/or microscopic examination of the described specimens and rendered or confirmed the above diagnosis. End of Report [facility] 2014 01/22/2014 Saundra Cortes CNM PATHOLOGY ORDERABLES Performing Organization Address City/State/[facility] Co de Phone Number [facility] [address] [place] [address] documented in this encounter Visit Diagnoses Not on filedocumented in this encounter Care Teams Dramatic Coach Relationship Specialty Start Date End Date Cyndie Lopez MD [address] [place] [address] PCP - General 10/03/09 documented as of this encounter
--- OUTSIDE RECORDS SUMMARY | 2024-03-05 01:01 | XMS_ITS | Encounter Summary ---
Author Organization [facility] Address [address] [place] [address] Care Team Providers Care Professor Of French Name Role Phone Unavailable Primary Care Provider Unavailabl e Encounter Details Date Type Department Care Team (Late st Contact Info) Description 08/21/2004 10:39 EST Hospital Encounter [facility] - [address] [address] Dimple Gomes MD [address] [place] [address] [place] [address] Social History Tobacco Use Types Packs/Day Years [...]
--- OUTSIDE RECORDS SUMMARY | 2024-03-05 01:01 | XMS_ITS | Encounter Summary ---
Author Organization [facility] Address [address] [place] [address] Care Team Providers Care Automobile Appraiser Name Role Phone Unavailable Primary Care Provider Unavailabl e Encounter Details Date Type Department Care Team (Late st Contact Info) Description 05/14/2005 11:02 EDT [place] [facility] [place] [address] [place] [address] Candy Berman PA [address] [address] Social History Tobacco Use Types Packs/Day Years Used Date Smoking Tobacco: Never Assessed Sex and Gender Information Value Date Recorded Sex Assigned at Not on file Gender Identity Not on file Sexual Orientation Not on file documented as of this encounter Plan of Treatment Pending Results Name Type Priority Associated Diagnoses Date /Time CYTOPATHOLOGY Pathology Routine 07/26/2009 0:00 EST CYTOPATHOLOGY Pathology Routine 07/26/2009 0:00 EST Scheduled Orders Name Type Priority Associated Diagnoses Orde r Schedule CYTOPATHOLOGY Pathology Routine For medicat ions that can be administered at any time during the hospitalization for visit such as immunizations. for 1 Occurrences starting 07/27/2009 CYTOPATHOLOGY Pathology Routine For medicat ions that can be administered at any time during the hospitalization for visit such as immunizations. for 1 Occurrences starting 07/27/2009 documented as of this encounter Procedures Procedure Name Priority Date/Time Associated Diagnosis Comments HPV DETECTION, HIGH RISK TYPES Routine 07/26/2009 17:30 EST CYTOPATHOLOGY Routine 07/26/2009 0:00 EST documented in this encounter Results * HUMAN PAPILLOMA VIRUS DNA TEST (07/26/2009 17:30 EST) Specimen Description Cervix, ThinPrep vial [facility] Result Positive for one or more of HPV types 16,18,31,33,35 ,39,45,51,52,5 6,58,59, or 68. These high/intermedi ate risk HPV types are associated with dysplasia and some cervical cancers. [facility] Report Status Final 08/09/2009 [facility] 07/26/2009 17:3 0 EST 07/29/2009 10:10 EST Saundra Newsome CNM MICROBIOLOGY - GENER AL ORDERABLES Performing Organization Address City/State/[facility] Co de Phone Number [facility] [address] [place] [address] * CYTOPATHOLOGY (07/26/2009 0:00 EST) Pathology Report: CYTOPATHOLOGY REPORT ? Reports generated via electronic interface contain original data; ? however they are lacking the format of the original report. ? Caution should be taken when reading/interpreti ng unformatted reports. ? Name: ? GEOFFREY MORENO ? Accession #: ? [id number] ? : ? 1975 (Age: 34) ??F ?Collect Date: ? 07/26/2009 ? Location: ? [facility] ? Receive Date: ? 07/27/2009 ? Provider: ?SAUNDRA SEBASTIAN CNM ? Copy to: ? Specimen/Source: ?Pap Test, Cervix/Endocervix, ThinPrep Imaging System ? with manual evaluation ? Last Menstrual Period: ? 11/01/09 ? Menstrual/Pregnanc y Status: ? Treatment History: ? Colposcopy: 10 yrs ago, paps normal since ? Other: ? HPVDX - HPV testing requested regardless of diagnosis on current ThinPrep Pap ?? test. ? SPECIMEN ADEQUACY ? Satisfactory for Evaluation ? - transformation zone component present ? GENERAL CATEGORIZATION ? Negative for Intraepithelial Lesion or Malignancy ? INTERPRETATION ? Fungal organisms present morphologically consistent with Jeanne species. ? Document reviewed and electronically signed by: ? Lorenza Newton, [place](ASCP) ? Report Date: ??07/28/2009 08:41 ? End of Report ? [facility] 07/26/2009 07/27/2009 Saundra Newsome CNM PATHOLOGY ORDERABLES [facility] [address] [place] [address] documented in this encounter Visit Diagnoses Not on filedocumented in this encounter
--- OUTSIDE RECORDS SUMMARY | 2024-03-05 01:01 | XMS_ITS | Encounter Summary ---
Author Organization [facility] Address [address] [place] [address] Care Team Providers Care Embroidery Specialist Name Role Phone Cyndie Lopez MD Primary Care Provider [phone] Encounter Details Date Type Department Care Team (Late st Contact Info) Description 02/03/2015 Results Only [facility] [phone] Bruno Raygoza MD [address] [address] Social History Tobacco Use Types Packs/Day Years [...] Diagnosis Comments PAP TEST- RESULT ONLY Routine 02/03/2015 0:00 EDT documented in this encounter Results * PAP TEST- RESULT ONLY (02/03/2015 0:00 EDT) Pathology Report: CYTOPATHOLOGY REPORT Reports generated via electronic interface contain original data; however they are lacking the format of the original report. Caution should be taken when reading/interpreti ng unformatted reports. Name: ? GEOFFREY ARRIAZA ? Accession #: ? [id number] ? : ? 1975 (Age: 40) ??F ?Collect Date: ? 02/03/2015 ? Location: ? [facility] ? Receive Date: ? 02/04/2015 ? Provider: BRUNO RAYGOZA MD Copy to: ? Final Report SPECIMEN ADEQUACY ? Satisfactory for Evaluation - transformation zone component present GENERAL CATEGORIZATION ? Negative for Intraepithelial Lesion or Malignancy ?? Last Menstrual Period: n/a Hormonal/Contracep tive status: Intrauterine device: Mirena Previous Gynecologic Pathology: HPV: + Other: Additional clinical information: 2014 NIL Specimen/Source: ??Pap Test, Cervix, ThinPrep Imaging System with manual evaluation Document reviewed and electronically signed by: ? Kitty Freitas, IRISH(ASCP)(IAC) ? Report ??Date: 02/10/2015 17:23 HPV with Pap Test ? Date Ordered: ? 02/10/2015 ? Status: ?? Signed Out ?Date Complete: ? 02/14/2015 ? By: ??System Interface ? Date Reported: ? 02/14/2015 ? Interpretation RESULT: Negative for HPV. No E6 or E7 mRNA is detected from HPV types 16,18,31,33,35, 39,45,51,52,56,58, 59,66, and 68 by qa analyst mediated amplification. Comments Document reviewed and electronically signed by: ? System Interface ? Report date: 02/14/2015 By the signature above, the attending physician certifies that he/she has personally conducted a gross and/or microscopic examination of the described specimens and rendered or confirmed the above diagnosis. End of Report [facility] 02/03/2015 02/04/2015 Bruno Raygoza MD PATHOLOGY ORDERABLES [facility] [address] [place] [address] documented in this encounter Visit Diagnoses Not on filedocumented in this encounter Care Teams Embroidery Specialist Relationship Specialty Start Date End Date Cyndie Lopez MD [address] [place] [address] PCP - General 10/03/09 documented as of this encounter
--- OUTSIDE RECORDS SUMMARY | 2024-03-05 01:01 | XMS_ITS | Encounter Summary ---
Author Organization [facility] Address [address] [place] [address] Care Team Providers Care Loan Underwriter Name Role Phone Cyndie Lopez MD Primary Care Provider [phone] Encounter Details Date Type Department Care Team (Late st Contact Info) Description 05/18/2011 Results Only [facility] - [facility] [place] [address] [place], [place] [id number] Cisco Moran [address] [place], [place] [address] Social History Tobacco Use Types Packs/Day Years [...] Diagnosis Comments PAP TEST- RESULT ONLY Routine 05/18/2011 0:00 EDT documented in this encounter Results * PAP TEST- RESULT ONLY (05/18/2011 0:00 EDT) Pathology Report: CYTOPATHOLOGY REPORT Reports generated via electronic interface contain original data; however they are lacking the format of the original report. Caution should be taken when reading/interpreti ng unformatted reports. Name: ? GEOFFREY MORENO ? Accession #: ? [id number] ? : ? 1975 (Age: 36) ??F ?Collect Date: ? 05/18/2011 ? Location: ? [facility] ? Receive Date: ? 05/21/2011 ? Provider: CISCO MORAN CNM Copy to: ? Final Report SPECIMEN ADEQUACY ? Satisfactory for Evaluation - transformation zone component present GENERAL CATEGORIZATION ? Negative for Intraepithelial Lesion or Malignancy ?? Last Menstural Period: 04/12/11 Hormonal/Contracep tive status: Intrauterine device: Mirena Previous Gynecologic Pathology: HPV: + Treatment History: Colposcopy: 2000 Other: Additional clinical information: Last pap smear 2009 wn Specimen/Source: ??Pap Test, Cervix/Endocervix, ThinPrep Imaging System with manual evaluation Document reviewed and electronically signed by: ? IRISH Carpenter(ASCP) ? Report ??Date: 05/29/2011 15:11 HPV with Pap Test ? Date Ordered: ? 05/29/2011 ? Status: ?? Signed Out ?Date Complete: ? 05/31/2011 ? By: ??System Interface ? Date Reported: ? 05/31/2011 ? Interpretation RESULT: Positive for one or more of HPV types 16,18,31,33,35,39, 45, 51,52,56,58,59, or 68. These high/intermediate risk HPV types are associated with some squamous intraepithelial lesions and cervical cancers. Comments Document reviewed and electronically signed by: ? System Interface ? Report date: 05/31/2011 By the signature above, the attending physician certifies that he/she has personally conducted a gross and/or microscopic examination of the described specimens and rendered or confirmed the above diagnosis. End of Report [facility] 05/18/2011 05/21/2011 Cisco Omkar [facility] PATHOLOGY ORDERABLES [facility] [address] [place] [address] documented in this encounter Visit Diagnoses Not on filedocumented in this encounter Care Teams Loan Underwriter Relationship Specialty Start Date End Date Cyndie Lopez MD [address] [place] [address] PCP - General 10/03/09 documented as of this encounter
--- OUTSIDE RECORDS SUMMARY | 2024-03-05 01:01 | XMS_ITS | Clinical Summary ---
Author Organization [facility] [place] [address] Care Team Providers Care Baggage Clerk Name Role Phone Debbie Amaral MD Primary Care Provider [phone] Allergies Active Allergy Reactions Criticality Noted Date Comments Eggplant 08/24/2016 Medications Medication Sig Dispensed Refills Start Date End Date Status FLUoxetine (PROZAC) 10 mg Tablet take 1 tablet by mouth once daily 0 08/21/2016 Active Active Problems Problem Noted Date Diagnosed Date Nevus 08/24/2016 Social History Tobacco Use Types Packs/Day Years Used Date Smoking Tobacco: Never Sex and Gender Information Value Date Recorded Sex Assigned at Not on file Gender Identity Not on file Sexual Orientation Not on file Plan of Treatment Health Maintenance Due Date Last Done Comments CT Colonography 1975 Colonoscopy 1975 Colorectal Cancer Screening 1975 FIT DNA 1975 FIT 1975 Sigmoidoscopy (10 year) with FIT yearly 1975 Sigmoidoscopy 1975 HIV screen 1995 Hepatitis C Screening 1995 Hepatitis B vaccine (0-59 yrs) (1) 01/21/1996 Tdap adult 01/21/1996 Tetanus vaccine 01/21/1996 HPV test 2007 PAP Smear 2007 Breast Cancer Share Decision Needed 2017 Breast Cancer screening 2017 Covid-19 Vaccine ( season) 2023 Influenza (Flu) vaccine (1 o f 1 - Influenza standard series) 03/29/2024 Care Teams Baggage Clerk Relationship Specialty Start Date End Date Debbie Amaral MD [address] [place] [address] PCP - General Family Medicine 08/24/16
--- OUTSIDE RECORDS SUMMARY | 2024-03-05 01:01 | XMS_ITS | Encounter Summary ---
Author Organization [facility] Address [address] [place] [address] Care Team Providers Care Sales Agent Fire Insurance Name Role Phone Cyndie Lopez MD Primary Care Provider [phone] Encounter Details Date Type Department Care Team (Late st Contact Info) Description 04/11/2020 Lab Requisition [facility] Pathology & Laboratory Medicine - [address] [phone] Outr Resulting Lab, Provider Social History Tobacco [...] Procedure Name Priority Date/Time Associated Diagnosis Comments VITAMIN D (25,OH) Routine 04/11/2020 7:55 EDT documented in this encounter Results * VITAMIN D (25,OH) (04/11/2020 7:55 EDT) 25OH Vitamin D Tot 38.5 30.0 - 100.0 ng/mL 04/12/2020 10:56 EDT [facility] Comment: Vitamin D 25,OH Interpretive Ranges: Deficiency: ??<10.0 ng/mL Insufficiency: ??10.0 - 30.0 ng/mL Sufficiency: ??30.0 - 100.0 ng/mL Toxicity: ??>100.0 ng/mL Blood VENOUS BLOOD / Unknown 04/11/2020 7:55 EDT 04/11/2020 22:07 EDT Provider Outr Resulting Lab CHEMISTRY & BLOOD GAS ORDERABLES [facility] [address] [place] [address] documented in this encounter Visit Diagnoses Not on filedocumented in this encounter Care Teams Sales Agent Fire Insurance Relationship Specialty Start Date End Date Cyndie Lopez MD [address] [place] [address] PCP - General 10/03/09 documented as of this encounter
== END ==
PROVIDERS: PCP Family Medicine; Visit Provider Family Medicine
DX: N95.9 Unspecified menopausal and perimenopausal disorder (principal)
CPT/HCPCS: 77080

== ENCOUNTER 2024-03-27 00:18 | Outpatient (CLI) | payer BC, SELFPAY ==
--- OUTSIDE RECORDS SUMMARY | 2024-03-27 00:32 | XMS_ITS | Encounter Summary ---
Author Organization [facility] Address [address] [place] [address] Care Team Providers Care [facility] Attendant Name Role Phone Cyndie Lopez MD Primary Care Provider [phone] Encounter Details Date Type Department Care Team (Late st Contact Info) Description 2014 Results Only [facility] Laboratory Services - [facility] ([facility]) [address] [place], [place] [address] Saundra Cortes CNM [address] [place] [address],[address] [place] [id number] Social History Tobacco Use Types Packs/Day Years [...] ? GEOFFREY MORENO ? Accession #: ? [id number] ? : ? 1975 (Age: 39) ??F [...] 33,35,39,45,51,52, 56,58,59,66, and 68 is detected by lithostripper mediated amplification. High and intermediate risk HPV [...] Cortes CNM PATHOLOGY ORDERABLES Performing Organization Address City/State/[facility] Co de Phone Number [facility] [address] [place] [address] documented in this encounter Visit Diagnoses Not on filedocumented in this encounter Care Teams [facility] Attendant Relationship Specialty Start Date End Date Cyndie Lopez MD [address] [place] [address] PCP - General 10/03/09 documented as of this encounter
--- OUTSIDE RECORDS SUMMARY | 2024-03-27 00:32 | XMS_ITS | Encounter Summary ---
Author Organization [facility] Address [address] [place] [address] Care Team Providers Care Newspaper Clipper Name Role Phone Cyndie Lopez MD Primary Care Provider [phone] Encounter Details Date Type Department Care Team (Late st Contact Info) Description 10/03/2009 Orders Only [facility] [phone] Kathleen Espitia CNM [address] [place] [address] [place] [address] Social History Tobacco Use Types Packs/Day Years Used Date Smoking Tobacco: Never Assessed Sex and Gender Information Value Date Recorded Sex Assigned at Not on file Gender Identity Not on file Sexual Orientation Not on file documented as of this encounter Plan of Treatment Not on file documented as of this encounter Procedures Procedure Name Priority Date/Time Associated Diagnosis Comments [facility] ROUTINE 10/03/2009 18:30 EST documented in this encounter Results * [facility] ROUTINE (10/03/2009 18:30 EST) Anatomical Region Laterality Modality Other 10/03/2009 18:3 0 EST 10/03/2009 20:40 EST Narrative 10/03/2009 20:40 EST Please refer to the separate [facility] report. ??Contact Maternal Medicine. Procedure Note 10/03/2009 Please refer to the separate [facility] report. Contact Maternal Medicine. Kathleen Espitia CNM [facility] ORDERABLE S documented in this encounter Visit Diagnoses Not on filedocumented in this encounter Care Teams Newspaper Clipper Relationship Specialty Start Date End Date Cyndie Lopez MD [address] [place] [id number] PCP - General 10/03/09 documented as of this encounter
--- OUTSIDE RECORDS SUMMARY | 2024-03-27 00:32 | XMS_ITS | Encounter Summary ---
Author Organization [facility] Address [address] [place] [address] Care Team Providers Care Dean Name Role Phone Unavailable Primary Care Provider Unavailabl e Encounter Details Date Type Department Care Team (Late st Contact Info) Description 09/19/2009 15:46 EST - 09/19/2009 15:50 EST Hospital Encounter [facility] - Other [address] [place] [address] Kathleen Espitia, ROSALINDA [address] [place] [address] Discharge Disposition: Home or Self Care Social [...]
--- OUTSIDE RECORDS SUMMARY | 2024-03-27 00:32 | XMS_ITS | Encounter Summary ---
Author Organization [facility] Address [address] [place] [address] Care Team Providers Care Prn Occupational Therapist Name Role Phone Cyndie Lopez MD Primary Care Provider [phone] Encounter Details Date Type Department Care Team (Late st Contact Info) Description 02/03/2015 Results Only [facility] [phone] Bruno Raygoza MD [address] [address] Social History Tobacco Use Types [...] ? GEOFFREY ARRIAZA ? Accession #: ? [id number] ? : ? 1975 (Age: 40) ??F [...] types 16,18,31,33,35, 39,45,51,52,56,58, 59,66, and 68 by body shop manager mediated amplification. Comments Document reviewed and electronically signed by: ? System Interface ? Report date: 02/14/2015 By the signature above, the attending physician certifies that he/she has personally conducted a gross and/or microscopic examination of the described specimens and rendered or confirmed the above diagnosis. End of Report [facility] 02/03/2015 02/04/2015 Bruno Raygoza MD PATHOLOGY ORDERABLES [facility] [address] [place] [address] documented in this encounter Visit Diagnoses Not on filedocumented in this encounter Care Teams Prn Occupational Therapist Relationship Specialty Start Date End Date Cyndie Lopez MD [address] [place] [address] PCP - General 10/03/09 documented as of this encounter
--- OUTSIDE RECORDS SUMMARY | 2024-03-27 00:32 | XMS_ITS | Continuity of Care Document ---
Author Organization [facility] Address [address] [place] [address] Assessment No assessment recorded. Plan of Treatment Reminders Order Date Submit Date Provider Last Modified By Organization Details Last Modified Time Details Appointments Nurse Visit 2024 09:00A M Not available Not available Not available Annual Wellness Exam 2024 08:00A M Not available Not available Not available Lab None recorded. Referral None recorded. Procedures None recorded. Surgeries None recorded. Imaging XR, hip + pelvis, unilatera l, 2 or 3 view 2023 024 [facility] (Radiology), [facility], [place], [address], 03/25/2024 15:55:19 Medication Orders None recorded. Patient TargetsNo targets recorded. Patient InstructionsNo instructions recorded. Reason for Referral None Reported. Results Created Date Observation Date Name Description Value Unit Range Abnormal Flag Note LastModifiedBy Organization Detail LastModifiedTime 03/05/2003/05/2024 DEXA Patien t Name: Rupa Jordan ail Unit #: [id number] Loc: DI Orderi ng Provid er: Debbie Amaral Accoun t #: [id number] Status : REG CLI Primar y Care Provid er: Debbie Amaral Date of Exam: Sex: F Admiss ion Date: : 1974 Age: 49 Exam(s ) XR DEXA BONE DENSIT Y W/WO KISHA EXAM: XR DEXA BONE DENSIT Y W/WO KISHA CLINIC AL HISTOR Y: PERIME NOPAUS AL DISORD ER, N95.9 TECHNI QUE: Hologi c Horizo n C densit ometer analys is of left hip, lumbar spine and left forear m. Latera l survey image of the thorac ic and lumbar spine. COMPAR FRANSICO: No exams were availa ble for compar fransico FINDIN GS: Latera l view of the thorac ic and lumbar spine shows no eviden ce of compre ssion fractu res. Bone minera l densit y measur ements of the lumbar spine corres pond to a total T-scor e of -0.2, in the normal range. Bone minera l densit y measur ements of the left hip corres pond to a total T-scor e of -0.2, in the normal range. . The femora l neck T-scor e is 0.2. Thelef t forear m bone minera l densit y measur ements corres pond to a T-scor e of the distal 3rd of 0.1, in the normal range. . IMPRES MAK: Normal bone minera l densit y. Ordere d By: Debbie Amaral CC: ------ ------ ------ ------ ------ ------ ------ ------ ------ ------ ------ ------ - Dictat ed By: Juanita White 1434 1434 Transc ribed By: Juancarlos Travis 1434 This is privil eged, confid ential inform ation intend ed only for the provid er named. Any use or distri bution by any person other than this provid er is strict ly prohib ited. If you receiv e this report in error, please notify us immedi ately at and return the origin al report to us at the addres s above. Thank- you. [email or web address] [facility] (Radiology) [address] [place] [address] Dr, [place], [address], 03/20/2024 11:57:06 Result Notes None recorded. Problems Name Problem SNOMED Code Status Onset Date Resolution Date Notes Provider Name and Address Organization Details Recorded Time Premenst rual tension syndrome 88946515 [facility] 14:[facility]28 Acute conjunct ivitis 25083417 Completed 201403/31/2015 Problem Code: H10.30; Problem Code Type: ICD-10; Not Available [facility] 3 04:48:06 Contrace ption care manageme nt Active 2018 Radha Josefina [facility] 4 14:44:22 Herpesvi dustin infectio n 93546700 Active 2018 [facility] 4 14:44:31 Adult health examinat ion Active 2018 Radha Rocha [facility] 4 14:44:09 Lateral epicondy litis of right humerus 72678979107 9107 Completed 201907/28/2020 06/29/20 20 - Comments only - Debbie Amaral MD - Patient reports that she is using a tennis elbow brace and finds that it is been helpful and this is beginnin g to settle down. Problem Code: M77.11; Problem Code Type: ICD-10; Not Available [facility] 3 04:48:06 History of SARS-CoV -2 98894269845 8438345 Active 2020 [facility] 4 14:44:41 Fatigue 91344292 Completed 202007/14/2021 Problem Code: R53.83; Problem Code Type: ICD-10; Not Available [facility] 3 04:48:06 Dyspnea 098590913 Completed 202004/17/2021 Problem Code: R06.00; Problem Code Type: ICD-10; Not Available [facility] 3 04:48:07 Joint pain 32864477 Active 2021 [facility] 4 14:44:54 Pain in right hip joint 93921774554 9102 Active 2022 [facility] 4 14:45:07 Parosmia 683364711 Active 2022 [facility] Josefina [facility] 4 14:45:18 Anxiety disorder 179325974 Active 2022 [facility] 4 14:44:17 Screenin g for malignan t neoplasm of colon Active 2022 [facility] 4 14:45:32 Acute pharyngi tis 644549781 Completed 201406/26/2019 Problem Code: J02.9; Problem Code Type: ICD-10; Not Available [facility] 3 04:48:08 Disorder of skin and/or subcutan eous tissue 03621854 Completed 201511/21/2022 Problem Code: L98.9; Problem Code Type: ICD-10; Not Available [facility] 3 04:48:08 Acute pharyngi tis 511888992 Completed 202111/21/2022 Problem Code: J02.9; Problem Code Type: ICD-10; Not Available [facility] 3 04:48:09 Acute upper respirat ory infectio n 00365986 Completed 202111/21/2022 Problem Code: J06.9; Problem Code Type: ICD-10; Not Available [facility] 3 04:48:10 Cough 09706702 Completed 202111/21/2022 Problem Code: R05.8; Problem Code Type: ICD-10; Not Available [facility] 3 04:48:10 Fatigue 13673411 Completed 202111/21/2022 Problem Code: R53.83; Problem Code Type: ICD-10; Not Available [facility] 3 04:48:10 Streptoc occal sore throat 71787206 Completed 201506/26/2019 Problem Code: J02.0; Problem Code Type: ICD-10; Not Available [facility] 3 04:48:10 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 Procedures Surgical History Date Name Laterality Status Provider Name and Address Organization Details Recorded Time Most Recent Bone Density completed PRINCE GASTELUM, [facility] 03/06/2024 10:57:42 Imaging Results None recorded. Procedure Notes None recorded. Medical Equipment None Reported. [...] ONE TABLET BY MOUTH TWICE A DAY active Not Available Not Available No t Available doxycyclin e hyclate 100 mg capsule Take [...] TAKE ONE TABLET BY MOUTH EVERY DAY active Not Available Not Available No t Available bupropion HCl 100 mg tablet Take 1 [...] tab daily. 08/21 completed [facility]. Not Available Not Available Not Available amoxicilli n 875 mg-potassi um clavulanat e 125 mg tablet TAKE ONE TABLET BY MOUTH TWICE A DAY 11/24 completed Not Available Not Available Not Available Mirena 2014 active Not Available Not Available Not Avpascual labjessenia Zithromax Z-Jesus 10/11 completed Not Available Not Available Not Available Vitals Date Recorded Body height Oxygen saturation Oxygen saturation in Arterial blood by Pulse oximetry Heart rate Body mass index (BMI) Body weight Respiratory rate Systolic blood pressure Diastolic blood pressure Provider Name and Address Organization Details Last Updated DateTime 4 171.704 cm 99 % 99 % 82 /min 27.6 kg/m2 52829.1 9 g 16 /min 116 mm[Hg] 70 mm[Hg] Tushar Salazar MA [facility] 4 15:27:19 Social History Question Answer Notes LastModified by Organizat ion Details LastModified Time Tobacco Smoking Status Never Smoker ISAI LOPEZ RN null, [facility] 11/25/2023 07:59:22 Would You Say That, In General, Your Health Is Very Good [email or web address] Information not available 11/25/2023 Women Aged 18-50 - Would You Like To Become In The Next Year? (Female Patients Only) No Information not available 11/25/2023 How Often Does Anyone, Including Family, Physically Hurt You? Never Information not available 11/25/2023 How Often Does Anyone, Including Family, Insult Or Talk Down To You? Never [email or web address] Information no t available 11/25/2023 How Often Does Anyone, Including Family, Threaten You With Harm? Never [email or web address] Information not available 11/25/2023 How Often Does Anyone, Including Family, Scream Or Curse At You? Never [email or web address] Information not available 11/25/2023 Within The Past 12 Months, You Worried That Your Food Would Run Out Before You Got Money To Buy More. Never True [email or web address] Information n ot available 11/25/2023 Within The Past 12 Months, The Food You Bought Just Didn't Last And You Didn't Have Money To Get More. Never True Information not available 11/25/2023 How Hard Is It For You To Pay For The Very Basics Like Food, Housing, Medical Care, And Heating? Would You Say It Is: Not Hard At All [email or web address] Information not available 11/25/2023 In The Past 12 Months, Has Lack Of Reliable Transportation Kept You From Medical Appointments, Meetings, Work Or From Getting Things Needed For Daily Living? No [email or web address] Information not available 11/25/2023 What Is Your Housing Situation Today? I Have Housing. [email or web address] Information not available 11/25/2023 How Often In The Past Year Have You Used Marijuana (including Smoking, Vaping, Dabbing, Or Edibles)? Never [email or web address] Information not available 11/25/2023 How Often In The Past Year Have You Used Prescription Medications That Were Not Prescribed To You? Never Information not available 11/25/2023 How Often In The Past Year Have You Taken Your Own Prescription Medication More Than The Way It Was Prescribed Or For Different Reasons Than Its Intended Purpose? Never [email or web address] Information not available 11/25/2023 How Often In The Past Year Have You Used Other Drugs (for Example, Heroin, Cocaine, Meth, Salvia, Inhalants)? Never Information not available 11/25/2023 Have You Ever Used IV Drugs? No [email or web address] Information not available 11/25/2023 Date Of Most Recent SBINS 11/25/2023 [email or web address] Information not available 11/25/2023 What Was The Date Of Your Most Recent Tobacco Screening? 11/25/2023 [email or web address] Information n ot available 11/25/2023 Has Tobacco Cessation Counseling Been Provided? No [email or web address] Information not available 11/25/2023 Do You Or Have You Ever Used Any Other Forms Of Tobacco Or Nicotine? No [email or web address] Information not available 11/25/2023 Sex: Female Functional Status None recorded. Mental Status None recorded. Family History Relationship Description Onset Age of this Age Resolved Age Notes Mother Family history of osteoporosis Father Family history of se izure disorder Medical History No medical history recorded. Gynecological History Statement/Question Response Most Recent Bone Density 03/05/2024 Obstetrics History GPAL:G 0 P 0 0 0 0 Immunizations Vaccine Type Date Status Provider Name and Address Organization Details Recorded Time Td (adult), 2 Lf tetanus toxoid, preservative free, adsorbed 06/10/2020 completed Not Available [facility] 06/07/2023 04:12:18 Tdap 03/15/2010 completed Not Available [facility] 04:12:18 Influenza, split virus, trivalent, preservative 04/13/2015 completed Not Available [facility] 06/07/2023 04:12:19 Influenza, split virus, trivalent, preservative 04/14/2018 completed Not Available [facility] 06/07/2023 04:12:19 Influenza, split virus, trivalent, preservative 05/06/2017 completed Not Available [facility] 06/07/2023 04:12:19 Influenza, split virus, quadrivalent, PF 05/23/2020 completed Not Available [facility] 06/07/2023 04:12:20 COVID-19, mRNA, LNP-S, PF, 100 mcg/0.5mL dose or 50 mcg/0.25mL dose 06/03/2021 completed Not Available [facility] 06/07/20 04:12:21 COVID-19, mRNA, LNP-S, PF, 30 mcg/0.3 mL dose 10/03/2020 completed Not Available [facility] 06/07/2023 04:12:21 COVID-19, mRNA, LNP-S, PF, 30 mcg/0.3 mL dose 10/31/2020 completed Not Available [facility] 06/07/2023 04:12:21 Hep B, unspecified formulation 11/17/2008 completed Not Available [facility] 06/07/2023 04:12:21 Hep B, unspecified formulation 05/11/2008 completed Not Available [facility] 06/07/2023 04:12:22 Hep B, unspecified formulation 06/15/2008 completed Not Available [facility] 06/07/2023 04:12:22 influenza, unspecified formulation 04/11/2016 completed Not Available [facility] 06/07/2023 04:12:22 influenza, unspecified formulation 05/29/2019 completed Not Available [facility] 06/07/2023 04:12:22 influenza, unspecified formulation 06/29/2010 completed Not Available [facility] 06/07/2023 04:12:22 COVID-19, mRNA, LNP-S, PF, 30 mcg/0.3 mL dose 11/25/2023 completed ISAI LOPEZ RN [facility] 11/25/2023 08:37:04 Past Encounters Encounter ID Performer Location Encounter Start Date Encounter Closed Date Diagnosis/Indication Diagnosis SNOMED-CT Code Diagnosis ICD10 Code [id number] DEBBIE AMARAL MD [address] [address] 03/25/2024 15:07:14 03/25/2024 15:39:23 Pain in right hip joint 8174516885 98932 M25.551 Health Concerns Section Related Observation LastModified by Organization Detai ls LastModified Time None Recorded Concern Status LastModified by Organization Details LastModified Time None Recorded Payers Encounter Date Sequence Insurance Name Policy Number Policy Rodriguez Covered Member ID Rodriguez Member ID Guarantor Name 03/25/2024 1 [place]: [facility] [id number] Ana Arriaza [id number] Ana Arriaza Notes Date Note Type Note Provider Name and Address Organization Details Recorded Time 03/25/2024 text/html HPI Notes: Ana is an active 49-year-old female comes in today because she is having worsening right hip pain. She states that it feels as if the pain is deep inside the hip where the leg attaches. She states it hurts to press on it she is try doing a lot of stretching to see if that is going to improve that she is walking she does exercise it is not improving. She has taken some Tylenol and she said that that is helpful but it certainly does not resolve the issue. She would like to know what is going on with her hip. There is been no bruising there is no change in her bowels or urination DEBBIE AMARAL MD [address], [place], [address], [facility]. 03/25/2024 16:19:32 OBGyn Episode No OBEpisode recorded.
--- OUTSIDE RECORDS SUMMARY | 2024-03-27 00:32 | XMS_ITS ---
Author Organization Unknown Address [address] [place] [phone] Phone Care Team Providers Care Accounting Administrative Assistant Name Role Phone GORDON Greer Attending Unavailable [...] MILAN RAI MD Transcribed by: AMY 01/26/22/15:59 [id number] Electronically Reviewed and Signed By: JESSICA RAI MD 02/07/22 09:04 Copy for: SIRIA Redd via fax Copy for: [facility] [employer] Social History Type Status Start Date End Date Code Code Syst em Smoking History Never smoker (Never Smoked) 319251257 SNOMED CT Sex Female Hospital Discharge Instructions Should you have any questions prior to discharge, please contact a member of your healthcare team. If you have left the hospital and have any questions, please contact your primary care physician. Reason For Referral No Data Found Allergies and Adverse Reactions Allergy Substance Reaction Severity Start Date Concern Status Code Code System EGGPLANT Itching (SNOMED-CT: 291221845) Moderate Active No Known Drug Allergies Moderate Active 091483199 SNOMED-CT Plan of Treatment MM SCREEN BILAT 04/27/2024 MM SCREEN BILAT 01/26/2022 Encounters Encounter Diagnosis Start Date Code Code Sys tem Encounter for screening mamm ogram for malignant neoplasm of breast 01/26/2022 SNOMED-CT Personal Care Team Section Performer Name Performer Role Active Date Inactive Da te
--- OUTSIDE RECORDS SUMMARY | 2024-03-27 00:32 | XMS_ITS | Encounter Summary ---
Author Organization [facility] Address [address] [place] [address] Care Team Providers Care Priming Mixture Carrier Name Role Phone Cyndie Lopez MD Primary Care Provider [phone] Michael Jernigan MD Primary Care Provider [phone] Encounter Details Date Type Department Care Team (Late st Contact Info) Description 08/21/2004 Results Only [facility] - [facility] [address] [place] [address] Dimple Gomes MD [address] [place] [address] [place] [address] Social History Tobacco Use Types Packs/Day Years [...] DNA PROBE ORDERABLES [facility] [address] [place] [address] * HEMAGRAM (08/21/2004 10:41 EST) WBC 12.19 [...] & PF4 ORD ERABLES Performing Organization Address City/[facility] Co de Phone Number [facility] [address] [place] [address] documented in this encounter Visit Diagnoses Not on filedocumented in this encounter Care Teams Priming Mixture Carrier Relationship Specialty Start Date End Date Cyndie Lopez MD [address] [place] [address] PCP - General 10/03/09 Michael Jernigan MD [address] [place] [id number] PCP - General 09/21/09 10/02/09 documented as of this encounter
--- OUTSIDE RECORDS SUMMARY | 2024-03-27 00:32 | XMS_ITS | Encounter Summary ---
Author Organization [facility] Address [address] [place] [address] Care Team Providers Care Didactic Program In Dietetics Director Name Role Phone Cyndie Lopez MD Primary Care Provider [phone] Encounter Details Date Type Department Care Team (Late st Contact Info) Description 05/18/2011 Results Only [facility] Laboratory Services - [facility] ([facility]) [address], [place] [id number] Cisco Moran [address] [place], [place] [address] Social History Tobacco Use Types Packs/Day Years [...] ? GEOFFREY MORENO ? Accession #: ? [id number] ? : ? 1975 (Age: 36) ??F [...] Report [facility] 05/18/2011 05/21/2011 Cisco Omkar [facility] PATHOLOGY ORDERABLES [facility] [address] [place] [address] documented in this encounter Visit Diagnoses Not on filedocumented in this encounter Care Teams Didactic Program In Dietetics Director Relationship Specialty Start Date End Date Cyndie Lopez MD [address] [place] [address] PCP - General 10/03/09 documented as of this encounter
--- OUTSIDE RECORDS SUMMARY | 2024-03-27 00:32 | XMS_ITS | Encounter Summary ---
Author Organization [facility] Address [address] [place] [address] Care Team Providers Care Posting Specialist Name Role Phone Unavailable Primary Care Provider Unavailabl e Encounter Details Date Type Department Care Team (Late st Contact Info) Description 05/14/2005 11:02 EDT Hospital Encounter [facility] [address] [place] [address] Candy Berman PA [address] [address] Social History Tobacco Use Types [...] - GENER AL ORDERABLES Performing Organization Address City/State/[facility] Co de Phone Number [facility] [address] [place] [address] * CYTOPATHOLOGY (07/26/2009 0:00 EST) Pathology Report: CYTOPATHOLOGY REPORT ? Reports generated via electronic interface contain original data; ? however they are lacking the format of the original report. ? Caution should be taken when reading/interpreti ng unformatted reports. ? Name: ? GEOFFREY MORENO ? Accession #: ? [id number] ? : ? 1975 (Age: 34) ??F [...] CNM PATHOLOGY ORDERABLES [facility] [address] [place] [address] documented in this encounter Visit Diagnoses Not on filedocumented in this encounter
--- OUTSIDE RECORDS SUMMARY | 2024-03-27 00:32 | XMS_ITS | Encounter Summary ---
Author Organization [facility] Address [address] [place] [address] Care Team Providers Care Policy Checker Name Role Phone Unavailable Primary Care Provider Unavailabl e Encounter Details Date Type Department Care Team (Late st Contact Info) Description 11/01/2004 13:09 EDT Hospital Encounter [facility] - [facility] [address] [place] [address] Yessenia Madrid NP [facility] [address] [facility], [facility] [address] [place] [id number] Social History Tobacco Use Types Packs/Day Years Used Date Smoking Tobacco: Never Assessed Sex and Gender Information Value Date Recorded Sex Assigned at Not on file Gender Identity Not on file Sexual Orientation Not on file documented as of this encounter Plan of Treatment Not on file documented as of this encounter Procedures Procedure Name Priority Date/Time Associated Diagnosis Comments NURSING HOME JUDI- AMNIOTIC FLUID INDEX Routine 12/08/2004 12:00 EDT GROUP B STREPTOCOCCUS SUSCEPTIBILITY Routine 11/01/2004 9:06 EDT documented in this encounter Results * NURSING HOME JUDI- AMNIOTIC FLUID INDEX (12/08/2004 12:00 EDT) Anatomical Region Laterality Modality Other 12/08/2004 12:0 0 EDT Narrative 03/24/2009 12:56 EDT JUDI Please refer to the separate [facility] report. Procedure Note Ye Lozano MD - 03/24/2009 JUDI Please refer to the separate [facility] report. Tessie Holloway MD [facility] ORDERABLE S * GROUP B STREPTOCOCCUS SUSCEPTIBILITY (11/01/2004 9:06 EDT) Specimen Description Vaginal and Rectal [facility] Result NO GROUP B BETA STREPTOCOCCI ISOLATED [facility] Report Status Final [id number] [facility] 11/01/2004 9:06 EDT 11/02/2004 9:06 EDT Yessenia Madrid NP CNM HISTORICAL LAB FOR SQ LOAD [facility] [address] [place] [address] documented in this encounter Visit Diagnoses Not on filedocumented in this encounter
--- OUTSIDE RECORDS SUMMARY | 2024-03-27 00:32 | XMS_ITS | Clinical Summary ---
Author Organization [facility] Address [address] [place] [address] Care Team Providers Care Organ Recovery Coordinator Name Role Phone Cyndie Lopez MD Primary Care Provider [phone] Social History Tobacco Use Types Packs/Day Years [...] COVID-19 Vaccine ( season) 2023 Care Teams Organ Recovery Coordinator Relationship Specialty Start Date End Date Cyndie Lopez MD [address] [place] [address] PCP - General 10/03/09
--- OUTSIDE RECORDS SUMMARY | 2024-03-27 00:32 | XMS_ITS ---
Author Organization Unknown Address [address] [place] [phone] Phone Care Team Providers Care Snaker Name Role Phone GORDON Greer Attending Unavailable SIRIA Redd Primary Unavailable Social History Type Status Start Date End Date Code Code Syst em Smoking History Never smoker (Never Smoked) [id number] SNOMED CT Sex Female Hospital Discharge Instructions Should you have any questions prior to discharge, please contact a member of your healthcare team. If you have left the hospital and have any questions, please contact your primary care physician. Reason For Referral No Data Found Allergies and Adverse Reactions Allergy Substance Reaction Severity Start Date Concern Status Code Code System EGGPLANT Itching (SNOMED-CT: 428750917) Moderate Active No Known Drug Allergies Moderate Active [id number] SNOMED-CT Plan of Treatment MM SCREEN BILAT 04/27/2024 MM SCREEN BILAT 01/26/2022 Encounters Encounter Diagnosis Start Date Code Code Sys tem Frequency of micturition 12/06/2021 SNO MED-CT Personal Care Team Section Performer Name Performer Role Active Date Inactive Da te
--- OUTSIDE RECORDS SUMMARY | 2024-03-27 00:32 | XMS_ITS | Data Portability ---
Author Organization [place] - [facility] Address [place] [address] Assessment No assessment recorded. Plan of Treatment Reminders Order Date Submit Date Provider Last Modified By Organization Details Last Modified Time Details Appointments Nurse Visit 2024 09:00A M Not available Not available Not available Annual Wellness Exam 2024 08:00A M Not available Not available Not available Lab lipid panel, serum - 1Y [address] [facility] (Registration ), [address] [place] [address] [place], [address], 11/20/2023 06:14:33 CMP, serum or plasma - 1Y [address] [facility] (Registration ), [address] [place] [address] [place], [address], 11/20/2023 06:14:33 vitamin D, 25-hydrox y, total, serum - 1Y [address] [facility] (Registration ), [address] [place] [address] [place], [address], 11/20/2023 06:14:33 Referral None recorded. Procedures None recorded. Surgeries None recorded. Imaging XR, hip + pelvis, unilatera l, 2 or 3 view 2023 024 ATHENAFAX [facility] (Radiology), [address] [place] [address] [place], [address], 03/25/2024 15:55:19 Medication Orders None recorded. Patient TargetsNo targets recorded. Patient InstructionsNo instructions recorded. Reason for Referral None Reported. Results Created Date Observation Date Name Description Value Unit Range Abnormal Flag Note LastModifiedBy Organization Detail LastModifiedTime 11/18/19 24 11/18/2023 COMPR EHENS JERED METAB OLIC PANEL calcium 9.1 mg/dL 8.5-10 .1 normal Not Available [address] [place], [address] 11/19/2023 01:42:08 11/18/19 24 11/18/2023 COMPR EHENS JERED METAB OLIC PANEL glucose 92 mg/dL 74-106 normal Not Available [facility] [address] [place], [address] 11/19/2023 01:42:08 11/18/19 24 11/18/2023 COMPR EHENS JERED METAB OLIC PANEL BUN 15 mg/dL 7-18 normal Not Available German hayes [address] [place], [address] 11/19/2023 01:42:08 11/18/19 24 11/18/2023 COMPR EHENS JERED METAB OLIC PANEL creatinine 0.9 mg/dL 0.55-1 .02 normal Not Available [address] [place], [address] 11/19/2023 01:42:08 11/18/19 24 11/18/2023 COMPR EHENS JERED METAB OLIC PANEL estimated GFR 79.85 mL/min /1.73m 2 The eGFR is calcu lated from a serum creat inine using the CKD-E PI 2020 equat ion. Other varia bles requi red for the equat ion are gende r and age; this equat ion does not inclu de a race coeff icien t. This equat ion has simil ar overa ll perfo rmanc e to previ ous equat ions excep t value s may diffe r, in parti cular , in patie nts with highe r value s of eGFR and young er-ag ed adult s. Not Available [address] [place], [address] 11/19/2023 01:42:08 11/18/19 24 11/18/2023 COMPR EHENS JERED METAB OLIC PANEL total protein 6.6 g/dL 6.4-8. 2 normal Not Available [address] [place], [address] 11/19/2023 01:42:08 11/18/19 24 11/18/2023 COMPR EHENS JERED METAB OLIC PANEL albumin 3.5 g/dL 3.4-5. 0 normal Not Available [address] [place], [address] 11/19/2023 01:42:08 11/18/19 24 11/18/2023 COMPR EHENS JERED METAB OLIC PANEL bilirubin, total 0.3 mg/dL 0.2-1. 0 normal Not Available [address] [place], [address] 11/19/2023 01:42:08 11/18/19 24 11/18/2023 COMPR EHENS JERED METAB OLIC PANEL alk phos 61 U/L 46-116 normal Not Available [address] [place], [address] 11/19/2023 01:42:08 11/18/19 24 11/18/2023 COMPR EHENS JERED METAB OLIC PANEL sodium 144 mmol/ L 136-14 5 normal Not Available [address] [place], [address] 11/19/2023 01:42:08 11/18/19 24 11/18/2023 COMPR EHENS JERED METAB OLIC PANEL potassium 5.0 mmol/ L 3.5-5. 1 normal Not Available [address] [place], [address] 11/19/2023 01:42:08 11/18/19 24 11/18/2023 COMPR EHENS JERED METAB OLIC PANEL chloride 108 mmol/ L 98-107 high Not Available [address] [place], [address] 11/19/2023 01:42:08 11/18/19 24 11/18/2023 COMPR EHENS JERED METAB OLIC PANEL CO2 27.4 mmol/ L 21.0-3 2.0 normal Not Available [address] [place], [address] 11/19/2023 01:42:08 11/18/19 24 11/18/2023 COMPR EHENS JERED METAB OLIC PANEL anion gap 8.6 mmol/ L 3-11 normal Not Available [address] [place], [address] 11/19/2023 01:42:08 11/18/19 24 11/18/2023 COMPR EHENS JERED METAB OLIC PANEL AST 12 U/L 15-37 low Not Available German [address] [place], [address] 11/19/2023 01:42:08 11/18/19 24 11/18/2023 COMPR EHENS JERED METAB OLIC PANEL ALT 25 U/L 14-59 normal Not Available German [address] [place], [address] 11/19/2023 01:42:08 11/18/19 24 11/18/2023 LIPID 2 cholesterol 152 mg/dL <200 Not Available [address] [place], [address] 11/19/2023 01:42:08 11/18/19 24 11/18/2023 LIPID 2 triglyceride 52 mg/dL <150 Not Available [address] [place], [address] 11/19/2023 01:42:08 11/18/19 24 11/18/2023 LIPID 2 HDL cholesterol 65 mg/dL 40-60 Not Available [address] [place], [address] 11/19/2023 01:42:08 11/18/19 24 11/18/2023 LIPID 2 calculated LDL 77 mg/dL <100 Natio nal Jayde stero l Educa tion Progr am (NCEP -ATPI II) class ifica tions : Jayde stero l <200 mg/dL Cesar able Jayde stero l 200-2 39 mg/dL Borde rline High Jayde stero l >or=2 40 mg/dL High HDL <40 mg/dL Low HDL >or=6 0 mg/dL High LDL <100 mg/dL Optim al LDL 100-1 29 mg/dL Near Optim al/Ab ove Optim al LDL 130-1 59 mg/dL Borde rline High LDL 160-1 89 mg/dL High LDL >or=1 90 mg/dL Very High *The above refer ence range is for adult s 18 years or older . Not Available [address] [place], [address] 11/19/2023 01:42:08 11/18/19 24 11/18/2023 VITAM IN D 25 TOTAL vitamin D 25 total 54.2 NG/mL 30-100 normal Refer ence Guide lines : Defic ient: <10 ng/ml Insuf ficie nt: 10-30 ng/ml Suffi cient : 30-10 0 ng/ml Toxic : >100 ng/ml Not Available [address] [facility] [place], [address] 11/19/2023 02:15:16 03/05/20 24 03/05/2024 DEXA Patien t Name: Rupa Jordan Unit #: [id number] Loc: DI Orderi ng Provid er: Debbie Beverly Accoun t #: [id number] Status : REG CLI Primar y Care Provid er: Debbie Beverly Date of Exam: Sex: F Admiss ion [...] l densit y. Ordere d By: Debbie Beverly CC: ------ ------ ------ ------ ------ ------ [...] error, please notify us immedi ately at [phone] and return the origin al report to us at the addres s above. Thank- you. [email or web address] [facility] (Radiology) [address], [place], [address], 03/20/2024 11:57:06 Result Notes Documentation Provider Name and Address Organization Details Recorded Time Dexa : Patient Name: Ana Arriaza Unit #: [id number] Loc: DI Ordering Provider: Debbie Beverly Status: REG CLI Primary Care Provider: Debbie Beverly Date of Exam: Sex: F Admission Date: 03/05/24 : 1975 Age: 49 Exam(s) XR DEXA BONE DENSITY W/WO KISHA EXAM: XR DEXA BONE DENSITY W/WO KISHA CLINICAL HISTORY: PERIMENOPAUSAL DISORDER, N95.9 TECHNIQUE: Hologic Horizon C densitometer analysis of left hip, lumbar spine and left forearm. Lateral survey image of the thoracic and lumbar spine. COMPARISON: No exams were available for comparison FINDINGS: Lateral view of the thoracic and lumbar spine shows no evidence of compression fractures. Bone mineral density measurements of the lumbar spine correspond to a total T-score of -0.2, in the normal range. Bone mineral density measurements of the left hip correspond to a total T-score of -0.2, in the normal range.. The femoral neck T-score is 0.2. Theleft forearm bone mineral density measurements correspond to a T-score of the distal 3rd of 0.1, in the normal range.. IMPRESSION: Normal bone mineral density. Ordered By: Debbie Beverly CC: Dictated By: Brianna Travis M.D. 03/05/24 1434 03/05/24 1434 Transcribed By: Brianna Travis 03/05/24 1434 This is privileged, confidential information intended only for the provider named. Any use or distribution by any person other than this provider is strictly prohibited. If you receive this report in error, please notify us immediately at [phone] and return the original report to us at the address above. Thank-you. Kalli richard [facility] 03/20/2024 11:57:06 Problems Name Problem SNOMED Code Status Onset Date Resolution Date Notes Provider Name and Address Organization Details Recorded Time Premenst rual tension syndrome 45217577 Active 2014 Radha richard [facility] 4 14:45:28 Acute conjunct ivitis 59261138 Completed 201403/31/2015 Problem Code: H10.30; Problem Code Type: ICD-10; Not Available [facility] 3 04:48:06 Contrace ption care manageme nt Active [facility] 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 4 14:44:31 Adult health examinat ion [facility] 2018 [facility] 4 14:44:09 Lateral epicondy litis of right humerus 48263955745 9107 Completed 201907/28/2020 06/29/20 20 - Comments only - Debbie Beverly MD - Patient reports that she is using a tennis elbow brace and finds that it is been helpful and this is beginnin g to settle down. Problem Code: M77.11; Problem Code Type: ICD-10; Not Available [facility] 3 04:48:06 History of SARS-CoV -2 52509764575 3485358 Active 2020 [facility] 4 14:44:41 Fatigue 19548282 Completed 202007/14/2021 Problem Code: R53.83; Problem Code Type: ICD-10; Not Available [facility] 3 04:48:06 Dyspnea 533441159 Completed 202004/17/2021 Problem Code: R06.00; Problem Code Type: ICD-10; Not Available [facility] 3 04:48:07 Joint pain 67340920 Active 2021 [facility] 4 14:44:54 Pain in right hip joint 84352534450 9102 Active 2022 [facility] 4 14:45:07 Parosmia 620679922 Active 2022 [facility] 4 14:45:18 Anxiety disorder 675986380 Active 2022 Radha richard [facility] 4 14:44:17 Screenin g for malignan t neoplasm of colon Active 2022 Radha richard [facility] 4 14:45:32 Acute pharyngi tis 489628662 Completed 201406/26/2019 Problem Code: J02.9; Problem Code Type: ICD-10; Not Available [facility] 3 04:48:08 Disorder of skin and/or subcutan eous tissue 10220229 Completed 201511/21/2022 Problem Code: L98.9; Problem Code Type: ICD-10; Not Available [facility] 3 04:48:08 Acute pharyngi tis 501909036 Completed 202111/21/2022 Problem Code: J02.9; Problem Code Type: ICD-10; Not Available [facility] 3 04:48:09 Acute upper respirat ory infectio n 15439206 Completed 202111/21/2022 Problem Code: J06.9; Problem Code Type: ICD-10; Not Available [facility] 3 04:48:10 Cough 07303934 Completed 202111/21/2022 Problem Code: R05.8; Problem Code Type: ICD-10; Not Available [facility] 3 04:48:10 Fatigue 94201972 Completed 202111/21/2022 Problem Code: R53.83; Problem Code Type: ICD-10; Not Available [facility] 3 04:48:10 Streptoc occal sore throat 31547681 Completed 201506/26/2019 Problem Code: J02.0; Problem Code Type: ICD-10; Not Available [facility] 3 04:48:10 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 Procedures Surgical History Date Name Laterality Status Provider Name and Address Organization Details Recorded Time Most Recent Bone Density completed PRINCE GASTELUM, [facility] 03/06/2024 10:57:42 Imaging Results Imaging Date Name Status LastModified by Organizatio n Details LastModified Time 03/05/2024 DEXA completed [facility] (Radiology) [address], [place], [address], 03/20/2024 11:57:06 Procedure Notes None recorded. Medical Equipment None [...] tab daily. 08/21 completed [facility] Not Available Not Available Not Available amoxicilli [...] 110 mm[Hg] 72 mm[Hg] RONNIE MILLER CMA [facility] 11/18/2023 07:49:20 Date Recorded Body height Body mass index (BMI) Body weight Body temperature Oxygen saturation Oxygen saturation in Arterial blood by Pulse oximetry Heart rate Respiratory rate Systolic blood pressure Diastolic blood pressure Provider Name and Address Organization Details Last Updated DateTime 4 171.704 cm 28.2 kg/m2 11227.4 g 97.2 [degF] 97 % 97 % 90 /min 16 /min 120 mm[Hg] 60 mm[Hg] ISAI LOPEZ RN [facility] 4 07:57:43 Date Recorded Body height Oxygen saturation Oxygen saturation in Arterial blood by Pulse oximetry Heart rate Body mass index (BMI) Body weight Respiratory rate Systolic blood pressure Diastolic blood pressure Provider Name and Address Organization Details Last Updated DateTime 4 171.704 cm 99 % 99 % 82 /min 27.6 kg/m2 97953.1 9 g 16 /min 116 mm[Hg] 70 mm[Hg] Tushar Salazar MA [facility] 15:27:19 Social History Question Answer Notes LastModified by Organizat ion Details LastModified Time Tobacco Smoking Status Never Smoker KEI FERRO, [facility] 11/25/2023 07:59:22 Would You Say That, In General, Your Health Is Very Good Information not available 11/25/2023 Women Aged 18-50 - Would You Like To Become In The Next Year? (Female Patients Only) No [email or web address] Information not available 11/25/2023 How Often Does Anyone, Including Family, Physically Hurt You? Never [email or web address] Information not available 11/25/2023 How Often Does Anyone, Including Family, Insult Or Talk Down To You? Never [email or web address] Information no t available 11/25/2023 How Often Does Anyone, Including Family, Threaten You With Harm? Never Information not available 11/25/2023 How Often Does Anyone, Including Family, Scream Or Curse At You? Never [email or web address] Information not available 11/25/2023 Within The Past 12 Months, You Worried That Your Food Would Run Out Before You Got Money To Buy More. Never True [email or web address] Information n ot available 11/25/2023 Within The Past 12 Months, The Food You Bought Just Didn't Last And You Didn't Have Money To Get More. Never True [email or web address] Information not available 11/25/2023 How Hard Is It For You To Pay For The Very Basics Like Food, Housing, Medical Care, And Heating? Would You Say It Is: Not Hard At All [email or web address] Information not available 11/25/2023 In The Past 12 Months, Has Lack Of Reliable Transportation Kept You From Medical Appointments, Meetings, Work Or From Getting Things Needed For Daily Living? No [email or web address] Information not available 11/25/2023 What Is Your Housing Situation Today? I Have Housing. Information not available 11/25/2023 How Often In The Past Year Have You Used Marijuana (including Smoking, Vaping, Dabbing, Or Edibles)? Never [email or web address] Information not available 11/25/2023 How Often In The Past Year Have You Used Prescription Medications That Were Not Prescribed To You? Never [email or web address] Information not available 11/25/2023 How Often In The Past Year Have You Taken Your Own Prescription Medication More Than The Way It Was Prescribed Or For Different Reasons Than Its Intended Purpose? Never Information not available 11/25/2023 How Often In The Past Year Have You Used Other Drugs (for Example, Heroin, Cocaine, Meth, Salvia, Inhalants)? Never [email or web address] Information not available 11/25/2023 Have You Ever Used IV Drugs? No [email or web address] Information not available 11/25/2023 Date Of Most Recent SBINS 11/25/2023 [email or web address] Information not available 11/25/2023 What Was The Date Of Your Most Recent Tobacco Screening? 11/25/2023 [email or web address] Information n ot available 11/25/2023 Has Tobacco Cessation Counseling Been Provided? No [email or web address] Information not available 11/25/2023 Do You Or Have You Ever Used Any Other Forms Of Tobacco Or Nicotine? No [email or web address] Information not available 11/25/2023 Sex: Female Functional [...] preservative free, adsorbed 06/10/2020 completed Not Available [facility] 06/07/2023 04:12:18 Tdap 03/15/2010 completed Not Available [facility] 04:12:18 Influenza, split virus, trivalent, preservative 04/13/2015 completed Not Available [facility] 06/07/2023 04:12:19 Influenza, split virus, trivalent, preservative 04/14/2018 completed Not Available [facility] 06/07/2023 04:12:19 Influenza, split virus, trivalent, preservative 05/06/2017 completed Not Available [facility] 06/07/2023 04:12:19 Influenza, split virus, quadrivalent, PF 05/23/2020 completed Not Available [facility] 06/07/2023 04:12:20 COVID-19, mRNA, LNP-S, PF, 100 mcg/0.5mL dose or 50 mcg/0.25mL dose 06/03/2021 completed Not Available [facility] 06/07/20 04:12:21 COVID-19, mRNA, LNP-S, PF, 30 mcg/0.3 mL dose 10/03/2020 completed Not Available [facility] 06/07/2023 04:12:21 COVID-19, mRNA, LNP-S, PF, 30 mcg/0.3 mL dose 10/31/2020 completed Not Available [facility] 06/07/2023 04:12:21 Hep B, unspecified formulation 11/17/2008 completed Not Available [facility] 06/07/2023 04:12:21 Hep B, unspecified formulation 05/11/2008 completed Not Available [facility] 06/07/2023 04:12:22 Hep B, unspecified formulation 06/15/2008 completed Not Available [facility] 06/07/2023 04:12:22 influenza, unspecified formulation 04/11/2016 completed Not Available [facility] 06/07/2023 04:12:22 influenza, unspecified formulation 05/29/2019 completed Not Available [facility] 06/07/2023 04:12:22 influenza, unspecified formulation 06/29/2010 completed Not Available [facility] 06/07/2023 04:12:22 COVID-19, mRNA, LNP-S, PF, 30 mcg/0.3 mL dose 11/25/2023 completed ISAI LOPEZ RN [facility], [facility] 11/25/2023 08:37:04 Past Encounters Encounter ID Performer Location Encounter Start Date Encounter Closed Date Diagnosis/Indication Diagnosis SNOMED-CT Code Diagnosis ICD10 Code [id number] RONNIE MILLER CMA [address] [address] 11/18/2023 07:40:29 11/18/2023 07:52:10 Adult health examination 098647172 Z00.00 [id number] DEBBIE BEVERLY MD [address] [address] 11/25/2023 07:40:57 11/25/2023 08:36:56 Adult health examination 474008642 Z00.00 [id number] DEBBIE BEVERLY MD [facility] [address] [place] [address] 03/25/2024 15:07:14 03/25/2024 15:39:23 Pain in right hip joint 5053632194 02483 M25.551 Health Concerns Section Related Observation LastModified by Organization Detai ls LastModified Time None Recorded Concern Status LastModified by Organization Details LastModified Time None Recorded Advance Directives Directive None Recorded Payers Encounter Date Sequence Insurance Name Policy Number Policy Rodriguez Covered Member ID Rodriguez Member ID Guarantor Name 11/18/2023 1 [place] [facility] [id number] Ana Arsalan [id number] Ana Arsalan 11/25/2023 1 [place] [facility] [id number] Ana Arsalan [id number] Ana Arsalan 03/25/2024 1 [place] [facility] [id number] Ana Arsalan [id number] Ana Arsalan Notes Date Note Type Note Provider Name and Address Organization Details Recorded Time 11/25/2023 text/html HPI Notes: Is a healthy active 48-year-old female comes in today for general well exam. She had fasting blood work done prior to this appointment and we went over those results. 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 MD [address], [place], [address], [facility]. 11/25/2023 08:28:16 03/25/2024 text/html HPI Notes: Emily gaspar is an active 49-year-old female comes in [...] change in her bowels or urination DEBBIE BEVERLY MD [address], [place], [address], [facility]. 03/25/2024 16:19:32 OBGyn Episode No OBEpisode recorded.
--- OUTSIDE RECORDS SUMMARY | 2024-03-27 00:32 | XMS_ITS | Clinical Summary ---
Author Organization [facility] [place] [address] Care Team Providers Care Dental Ceramist Name Role Phone Debbie Amaral MD Primary Care Provider [phone] Allergies Active Allergy Reactions Criticality Noted Date [...] - Influenza standard series) 03/29/2024 Care Teams Dental Ceramist Relationship Specialty Start Date End Date Debbie Amaral MD [address] [place] [address] PCP - General Family Medicine 08/24/16
--- OUTSIDE RECORDS SUMMARY | 2024-03-27 00:32 | XMS_ITS | Encounter Summary ---
Author Organization [facility] Address [address] [place] [address] Care Team Providers Care Medical Office Scheduler Name Role Phone Unavailable Primary Care Provider Unavailabl e Encounter Details Date Type Department Care Team (Late st Contact Info) Description 01/24/2005 21:51 EDT Hospital Encounter [facility] - Other [address] [place] [address] Dimple Gomes MD [address] [place] [address] [place] [address] Social History Tobacco Use Types Packs/Day Years [...]
--- OUTSIDE RECORDS SUMMARY | 2024-03-27 00:32 | XMS_ITS | Encounter Summary ---
Author Organization [facility] Address [address] [place] [address] Care Team Providers Care Parallel Computing Software Engineer Name Role Phone Unavailable Primary Care Provider Unavailabl e Encounter Details Date Type Department Care Team (Late st Contact Info) Description 12/08/2004 15:05 EDT - 12/11/2004 11:59 EDT Hospital Encounter [facility] [address] [place], [place] [id number] Kathleen Last MD [address] [facility], [address] [place] [id number] Discharge Disposition: Home-Health Care Svc Social History [...] EDT 12/08/2004 16:19 EDT Yessenia Madrid TIA [facility] INFO SERVICE AN D SUPPORT & PHONE RESULT Performing Organization Address City/[facility]/ZIP Co de Phone Number [facility] [address] [place] [address] * HOLD PURPLE TOP (12/08/2004 16:00 EDT) Hold Purple Top EDTA for hematology will be discarded after 48 hours, differential not available after 12 hours. [facility] 12/08/2004 16:0 0 EDT 12/08/2004 16:19 EDT Yessenia Madrid TIA [facility] INFO SERVICE AN D SUPPORT & PHONE RESULT Performing Organization Address [facility] de Phone Number [facility] [address] [place] [address] * (ABNORMAL) HEMAGRAM AND DIFFERENTIAL (12/08/2004 16:00 [...] LAB Type of Diff: Automated [facility] 12/08/2004 16:0 0 EDT 12/08/2004 16:19 EDT Yessenia Madrid NP CNM PACKAGES & DNA PROB E ORDERABLES Performing Organization Address City/State/[facility] Co de Phone Number [facility] [address] [place] [address] documented in this encounter Visit Diagnoses Not on filedocumented in this encounter
--- OUTSIDE RECORDS SUMMARY | 2024-03-27 00:32 | XMS_ITS | Encounter Summary ---
Author Organization [facility] Address [address] [place] [address] Care Team Providers Care Heel Nail Rasper Name Role Phone Cyndie Lopez MD Primary Care Provider [phone] Encounter Details Date Type Department Care Team (Late st Contact Info) Description 01/15/2013 Results Only [facility] - [facility] ([facility]) [address] [place], [place] [id number] Cisco Moran CN[address] [place], [place] [address] Social History Tobacco Use Types Packs/Day Years [...] ? GEOFFREY MORENO ? Accession #: ? [id number] ? : ? 1975 (Age: 37) ??F [...] 33,35,39,45,51,52, 56,58,59,66, and 68 is detected by direct of real estate mediated amplification. High and intermediate risk HPV [...] Moran CNM PATHOLOGY ORDERABLES Performing Organization Address City/State/[facility] Co de Phone Number [facility] [address] [place] [address] documented in this encounter Visit Diagnoses Not on filedocumented in this encounter Care Teams Heel Nail Rasper Relationship Specialty Start Date End Date Cyndie Lopez MD [address] [place] [address] PCP - General 10/03/09 documented as of this encounter
--- OUTSIDE RECORDS SUMMARY | 2024-03-27 00:32 | XMS_ITS | Encounter Summary ---
Author Organization [facility] Address [address] [place] [address] Care Team Providers Care Imaging Manager Name Role Phone Cyndie Lopez MD Primary Care Provider [phone] Encounter Details Date Type Department Care Team (Late st Contact Info) Description 04/11/2020 Lab Requisition [facility] Pathology & Laboratory Medicine - [address] [id number] Outr Resulting Lab, Provider Social History Tobacco [...] 30.0 - 100.0 ng/mL 04/12/2020 10:56 EDT [facility] Comment: Vitamin D 25,OH Interpretive Ranges: Deficiency: ??<10.0 ng/mL Insufficiency: ??10.0 - 30.0 ng/mL Sufficiency: ??30.0 - 100.0 ng/mL Toxicity: ??>100.0 ng/mL Blood VENOUS BLOOD / Unknown 04/11/2020 7:55 EDT 04/11/2020 22:07 EDT Provider Outr Resulting Lab CHEMISTRY & BLOOD GAS ORDERABLES [facility] [address] [place] [address] documented in this encounter Visit Diagnoses Not on filedocumented in this encounter Care Teams Imaging Manager Relationship Specialty Start Date End Date Cyndie Lpoez MD [address] [place] [address] PCP - General 10/03/09 documented as of this encounter
--- OUTSIDE RECORDS SUMMARY | 2024-03-27 00:32 | XMS_ITS | Encounter Summary ---
Author Organization [facility] Address [address] [place] [address] Care Team Providers Care Gun Tester Name Role Phone Cyndie Lopez MD Primary Care Provider [phone] Encounter Details Date Type Department Care Team (Late st Contact Info) Description 04/17/2010 Results Only [facility] Laboratory Services - [facility] ([facility]) [address] [place], [place] [address] Saundra Newsome CNM [address] [place] [address],[address] [place] [address] Social History Tobacco Use Types Packs/Day Years [...] ? JOSH, GEOFFREY ? Accession #: ? [id number] ? : ? 1975 (Age: 35) ??F ?Collect Date: ? 04/17/2010 ? Location: ? [facility] ? Receive Date: ? 04/18/2010 ? Provider: SAUDNRA SEBASTIAN CNM ? Copy to: ? Final [...] Newsome CNM PATHOLOGY ORDERABLES Performing Organization Address City/State/[facility] Co de Phone Number [facility] [address] [place] [address] documented in this encounter Visit Diagnoses Not on filedocumented in this encounter Care Teams Gun Tester Relationship Specialty Start Date End Date Cyndie Lopez MD [address] [place] [address] PCP - General 10/03/09 documented as of this encounter
--- OUTSIDE RECORDS SUMMARY | 2024-03-27 00:32 | XMS_ITS | Encounter Summary ---
Author Organization [facility] Address [address] [place] [address] Care Team Providers Care Record Producer Name Role Phone Cyndie Lopez MD Primary Care Provider [phone] Encounter Details Date Type Department Care Team (Late st Contact Info) Description 12/07/2021 Lab Requisition [facility] Pathology & Laboratory Medicine - [address] [id number] Outr Resulting Lab, Provider Social History Tobacco [...] Lyme Ab Negative Negative 12/08/2021 10:50 EDT [facility] Blood VENOUS BLOOD / Unknown 12/06/2021 9:55 EDT 12/07/2021 17:38 EDT Provider Outr Resulting Lab IMMUNOLOGY A ND SEROLOGY ORDERABLES Performing Organization Address [facility] Co de Phone Number [facility] [address] [place] [address] * RHEUMATOID FACTOR (12/06/2021 9:55 EDT) Pathologist [facility] Rheumatoid Factor <8.6 <12.0 IU/mL 12/07/2021 17:55 EDT [facility] Blood VENOUS BLOOD / Unknown 12/06/2021 9:55 EDT 12/07/2021 17:38 EDT Provider Outr Resulting Lab CHEMISTRY & BLOOD GAS ORDERABLES Performing Organization Address [facility] de Phone Number [facility] [address] [place] [address] * ANTI NUCLEAR AB (LISA), IFA (12/06/2021 9:55 EDT) Pathologist [facility] LISA Interpretation Negative Negative 2021 15:20 EDT [facility] Comment:No titer performed, LISA Screen is negative. Blood VENOUS BLOOD / Unknown 12/06/2021 9:55 EDT 12/07/2021 17:38 EDT Narrative [facility] - 12/08/2021 15:20 EDT Results were obtained with the INOVA NOVA Lite HEp-2 LISA Kit by indirect immunofluorescence. Provider Outr Resulting Lab IMMUNOLOGY A ND SEROLOGY ORDERABLES Performing Organization Address [facility] de Phone Number [facility] [address] [place] [address] documented in this encounter Visit Diagnoses Not on filedocumented in this encounter Care Teams Record Producer Relationship Specialty Start Date End Date Cyndie Lopez MD [address] [place] [address] PCP - General 10/03/09 documented as of this encounter
--- OUTSIDE RECORDS SUMMARY | 2024-03-27 00:32 | XMS_ITS | Encounter Summary ---
Author Organization [facility] Address [address] [place] [address] Care Team Providers Care Military Professional Name Role Phone Unavailable Primary Care Provider Unavailabl e Encounter Details Date Type Department Care Team (Late st Contact Info) Description 08/21/2004 10:39 EST Hospital Encounter [facility] - [address] [address] Dimple Gomes MD [address] [place] [address] [place] [address] Social History Tobacco Use Types Packs/Day Years [...]
--- OUTSIDE RECORDS SUMMARY | 2024-03-27 00:32 | XMS_ITS ---
Author Organization Unknown Address [address] [place] [phone] Phone Care Team Providers Care Medical Collections Specialist Name Role Phone GORDON Greer Attending Unavailable SIRIA Redd Primary Unavailable Social History Type Status Start Date End Date Code Code Syst em Smoking History Never smoker (Never Smoked) 981898447 SNOMED CT Sex Female Hospital Discharge Instructions Should you have any questions prior to discharge, please contact a member of your healthcare team. If you have left the hospital and have any questions, please contact your primary care physician. Reason For Referral No Data Found Allergies and Adverse Reactions Allergy Substance Reaction Severity Start Date Concern Status Code Code System EGGPLANT Itching (SNOMED-CT: 940809214) Moderate Active No Known Drug Allergies Moderate Active [id number] SNOMED-CT Plan of Treatment MM SCREEN BILAT 04/27/2024 MM SCREEN BILAT 01/26/2022 Encounters Encounter Diagnosis Start Date Code Code Sys tem Encounter for gynecological examination (general) (routine) without abnormal findings 08/30/2021 SNOM ED-CT Personal Care Team Section Performer Name Performer Role Active Date Inactive Da te
--- OUTSIDE RECORDS SUMMARY | 2024-03-27 00:32 | XMS_ITS | Encounter Summary ---
Author Organization [facility] Address [address] [place] [address] Care Team Providers Care Adult Remedial Education Instructor Name Role Phone Michael Jernigan MD Primary Care Provider [phone] Encounter Details Date Type Department Care Team (Late st Contact Info) Description 02/13/2005 Before PRISM Converted Visit (Maple) [facility] - Maple conversion [address] [place] [address] Candy Berman PA [address] [address] Social History Tobacco Use Types [...] Evaluation - Candy Daly PA - 09/29/2009 5840 EST DIVISION OF DERMATOLOGY NEW PATIENT EVALUATION [...] 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 She has never tried Compound W or muxv-juv-ctdbdvc wart treatments. She also has a few [...] and demeanor, accompaniedby her nine week old . On the left hand, on the left [...] P - mr Job ID: Document ID: [id number] cc: MD Neal Vasquez MD documented in this encounter Care Teams Adult Remedial Education Instructor Relationship Specialty Start Date End Date Michael Jernigan MD [address] [place] [address] PCP - General 09/21/09 10/02/09 documented as of this encounter
--- OUTSIDE RECORDS SUMMARY | 2024-03-27 00:32 | XMS_ITS | Encounter Summary ---
Author Organization [facility] Address [address] [place] [address] Care Team Providers Care Home Service Director Name Role Phone Michael Jernigan MD Primary Care Provider [phone] Encounter Details Date Type Department Care Team (Late st Contact Info) Description 05/14/2005 Before PRISM Converted Visit (Maple) [facility] - Maple conversion [address] [place] [address] Candy Berman PA [address] [address] Social History Tobacco Use Types [...] has not gone away. She has a dbkp-tfdij-xse who she is breast feeding and is [...] A - lb Job ID: Document ID: [id number] cc: documented in this encounter Plan of Treatment Not on file documented as of this encounter Visit Diagnoses Not on filedocumented in this encounter Care Teams Home Service Director Relationship Specialty Start Date End Date Michael Jernigan MD [address] [place] [address] [address] [place] [address] PCP - General 09/21/09 10/02/09 documented as of this encounter
--- OUTSIDE RECORDS SUMMARY | 2024-03-27 00:32 | XMS_ITS | Referral Summary ---
Author Organization [facility] Address [address] [place] [address] Care Team Providers Care Vehicle Operator Name Role Phone Cyndie Lopez MD Primary Care Provider [phone] Social History Tobacco Use Types Packs/Day Years Used Date Smoking Tobacco: Never Assessed Sex and Gender Information Value Date Recorded Sex Assigned at Not on file Gender Identity Not on file Sexual Orientation Not on file Plan of Treatment Not on file Care Teams Vehicle Operator Relationship Specialty Start Date End Date Cyndie Lopez MD [address] [place] [address] PCP - General 10/03/09
--- OUTSIDE RECORDS SUMMARY | 2024-03-27 00:32 | XMS_ITS | Encounter Summary ---
Author Organization [facility] Address [address] [place] [address] Care Team Providers Care Bevel Polisher Name Role Phone Cyndie Lopez MD Primary Care Provider [phone] Encounter Details Date Type Department Care Team (Latest Contact Info) Description 03/01/2020 Lab Requisition [facility] Pathology & Laboratory Medicine - Main [address] [address] Sierra Gardner CNM [address] [place] [address], [address] [place] [address] Encounter for screening for malignant neoplasm of [...] types, PCR Negative Negative 03/18/2020 16:17 EDT [facility] Comment:No E6 or E7 mRNA is detected from HPV types 16,18,31,33,35,39,45,51,52,56,58,59,66, and 68 by consumer relations specialist mediated amplification. Papanicolaou smear specimen (specimen) CERVIX UTERI STRUCTURE / Unknown 02/29/2020 13:06 EDT 03/16/2020 11:12 EDT Sierra Gardner [facility] MICROBIOLOGY - GENE RAL ORDERABLES [facility] [address] [place] [address] * PAP TEST (02/29/2020 13:06 EDT) Specimens A. Cervix and/or Endocervix , ThinPrep Imaging System with Manual Evaluation 03/18/2020 16:17 [facility] Specimen Adequacy Satisfactory for Evaluation - transformation zone component present 03/18/2020 16:17 [facility] General Categorization Negative for intraepithelial lesion or malignancy 03/18/2020 16:17 [facility] Attestation By the signature below, the attending physician certifies that they have personally conducted a gross and/or microscopic examination of the described specimens and rendered or confirmed the above diagnosis. 03/18/2020 16:17 [facility] at 1617 Clinical History SEE ORDER COMMENTS 03/18/2020 16:17 [facility] HPV The result for the Human Papillomavirus (HPV) Detection-High Risk Types is Negative. No E6 or E7 mRNA is detected from HPV types 16,18,31,33,35,39 ,45,51,52,56,58,5 9,66, and 68 by consumer relations specialist mediated amplification.Lucy ting was performed on specimen [id number] and was resulted on 03/18/2020 1545 EDT by PIA, LAB INSTRUMENT RESULTS IN 03/18/2020 16:17 T [facility] Scanned Images 03/18/2020 16:17 [facility] Papanicolaou smear specimen (specimen) CERVIX UTERI STRUCTURE / Unknown 02/29/2020 13:06 EDT 03/02/2020 9:42 EDT Sierra Gardner [facility] PATHOLOGY ORDERABLE S [facility] [address] [place] [address] documented in this encounter Visit Diagnoses Diagnosis Encounter for screening for malignant neoplasm of cervix Screening for malignant neoplasm of the cervix Encounter for screening for human papillomavirus (HPV) Special screening examination for human papillomavirus (HPV) documented in this encounter Care Teams Bevel Polisher Relationship Specialty Start Date End Date Cyndie Lopez MD [address] [place] [address] PCP - General 10/03/09 documented as of this encounter
--- OUTSIDE RECORDS SUMMARY | 2024-03-27 00:32 | XMS_ITS | Encounter Summary ---
Author Organization [facility] Address [address] [place] [address] Care Team Providers Care Manager Ambulatory Name Role Phone Cyndie Lopez MD Primary Care Provider [phone] Michael Jernigan MD Primary Care Provider [phone] Encounter Details Date Type Department Care Team (Late st Contact Info) Description 05/18/2004 Results Only [facility] - Maple conversion [address] [place] [address] Tona Molina CNM [address] [place], [place] [address] Social History Tobacco Use Types Packs/Day Years [...] SEROL OGY ORDERABLES [facility] [address] [place] [address] * PROFILE (05/18/2004 15:03 EDT) ABO and [...] & DNA PROBE ORDERABLES Performing Organization Address [facility] Co de Phone Number [facility] [address] [place] [address] * BACTERIAL CULTURE, URINE (05/18/2004 14:52 EDT) Specimen Description Urine [facility] Result No growth [facility] Report Status Final [id number] [facility] 05/18/2004 14:5 2 EDT 05/18/2004 17:00 EDT Tona Molina CNM MICROBIOLOGY - GENER AL ORDERABLES Performing Organization Address [facility] Co de Phone Number [facility] [address] [place] [address] * N. GONORRHOEAE AMPLIFIED PROBE (05/18/2004 7:17 EDT) Result No Neisseria gonorrhoeae DNA detected by roller skater mediated amplification. [facility] Report Status Final [id number] [facility] Specimen Description Cervix [facility] 05/18/2004 7:17 EDT 05/19/2004 7:17 EDT Tona Molina CNM MICROBIOLOGY - GENER AL ORDERABLES Performing Organization Address [facility] Co de Phone Number [facility] [address] [place] [address] * CHLAMYDIA TRACHOMATIS AMPLIFIED PROBE (05/18/2004 7:17 EDT) Specimen Description Cervix [facility] Result No Chlamydia trachomatis DNA detected by roller skater mediated amplification. [facility] Report Status Final [id number] [facility] 05/18/2004 7:17 EDT 05/19/2004 7:17 EDT Tona Tracy [facility] MICROBIOLOGY - GENER AL ORDERABLES [facility] [address] [place] [address] * CYTOPATHOLOGY (05/18/2004 0:00 EDT) Pathology Report: CYTOPATHOLOGY REPORT Reports generated via electronic interface contain original data; however they are lacking the format of the original report. Caution should be taken when reading/interpreti ng unformatted reports. Name: ? GEOFFREY MORENO ? Accession #: ? [id number] : ? 1975 (Age: 29) ??F ?Collect [...] Molina CNM PATHOLOGY ORDERABLES Performing Organization Address City/State/[facility] Co de Phone Number [facility] [address] [place] [address] documented in this encounter Visit Diagnoses Not on filedocumented in this encounter Care Teams Manager Ambulatory Relationship Specialty Start Date End Date Cyndie Lopez MD [address] [place] [address] PCP - General 10/03/09 Michael Jernigan MD [address] [place] [address] [address] [place] [address] PCP - General 09/21/09 10/02/09 documented as of this encounter
--- OUTSIDE RECORDS SUMMARY | 2024-03-27 00:32 | XMS_ITS ---
Author Organization Unknown Address [address] [place] [phone] Phone Care Team Providers Care Leather Grainer Name Role Phone GORDON Greer Attending Unavailable SIRIA Redd Primary Unavailable Social History Type Status Start Date End Date Code Code Syst em Smoking History Never smoker (Never Smoked) [id number] SNOMED CT Sex Female Hospital Discharge Instructions Should you have any questions prior to discharge, please contact a member of your healthcare team. If you have left the hospital and have any questions, please contact your primary care physician. Reason For Referral No Data Found Allergies and Adverse Reactions Allergy Substance Reaction Severity Start Date Concern Status Code Code System EGGPLANT Itching (SNOMED-CT: 920011948) Moderate Active No Known Drug Allergies Moderate Active 507889774 SNOMED-CT Plan of Treatment MM SCREEN BILAT 04/27/2024 MM SCREEN BILAT 01/26/2022 Encounters Encounter Diagnosis Start Date Code Code Sys tem Canceled operative procedure 11/22/2022 [id number] SNOMED-CT Personal Care Team Section Performer Name Performer Role Active Date Inactive Da te
--- OUTSIDE RECORDS SUMMARY | 2024-03-27 00:32 | XMS_ITS | Encounter Summary ---
Author Organization [facility] Address [address] [place] [address] Care Team Providers Care Painter Railroad Car Name Role Phone Unavailable Primary Care Provider Tara lakhani Encounter Details Date Type Department Care Team (Late st Contact Info) Description 06/12/2004 14:11 EST Hospital Encounter [facility] - Other [address] [place], [place] [address] Lisa Caceres, TIA [address], [facility] [address] [place] [address] Discharge Disposition: Auto Discharge Social [...] Procedure Name Priority Date/Time Associated Diagnosis Comments LONG-TERM ROUTINE Routine 07/03/2004 15:00 EST documented in this encounter Results * LONG-TERM ROUTINE (07/03/2004 15:00 EST) Anatomical Region Laterality Modality Other 07/03/2004 15:0 0 EST Narrative 03/30/2009 11:30 EDT [id number],S/D Please refer [facility] the separate [facility] report. Procedure Note Truong Chow MD - 03/30/2009 43694,S/D Please refer [facility] the separate [facility] report. Lisa SIERRA LONG-TERM ORD ERABLES documented in this encounter Visit Diagnoses Not on filedocumented in this encounter
--- OUTSIDE RECORDS SUMMARY | 2024-03-27 00:32 | XMS_ITS | Encounter Summary ---
Author Organization [facility] Address [address] [place] [address] Care Team Providers Care Traffic Safety Administrator Name Role Phone Cyndie Lopez MD Primary Care Provider [phone] Encounter Details Date Type Department Care Team (Late st Contact Info) Description 04/11/2020 Lab Requisition [facility] Pathology & Laboratory Medicine - [address] [id number] Outr Resulting Lab, Provider Social History Tobacco [...] gonorrhoeae Result Negative Negative 04/12/2020 14:41 EDT [facility] Chlamydia trachomatis Result Negative Negative 04/12/2020 14:41 EDT [facility] Swab ENTIRE VAGINA / Unknown 04/11/2020 12:08 EDT 04/11/2020 22:38 EDT Provider Outr Resulting Lab MICROBIOLOGY - GENERAL ORDERABLES [facility] [address] [place] [address] documented in this encounter Visit Diagnoses Not on filedocumented in this encounter Care Teams Traffic Safety Administrator Relationship Specialty Start Date End Date Cyndie Lopez MD [address] [place] [address] PCP - General 10/03/09 documented as of this encounter
--- OUTSIDE RECORDS SUMMARY | 2024-03-27 00:32 | XMS_ITS | Encounter Summary ---
Author Organization [facility] Address [address] [facility] [place] [address] Care Team Providers Care Jewelry Setter Name Role Phone Debbie Amaral MD Primary Care Provider [phone] Reason for Visit * Reason Comments Skin Check Encounter Details Date Type Department Care Team (Late st Contact Info) Description 08/24/2016 10:30 AM EST Office Visit Dermatology at [address] [place] [address] Christiano Head MD [address] [facility], [place] [address] [place] Social History Tobacco Use [...] unspecified documented in this encounter Care Teams Jewelry Setter Relationship Specialty Start Date End Date Debbie Amaral MD [address] [place] [address] PCP - General Family Medicine 08/24/16 documented as of this encounter
--- OUTSIDE RECORDS SUMMARY | 2024-03-27 00:33 | XMS_ITS | Encounter Summary ---
Author Organization [facility] Address [address] [place] [address] Care Team Providers Care Rail Splitter Name Role Phone Unavailable Primary Care Provider Unavailabl e Encounter Details Date Type Department Care Team (Late st Contact Info) Description 05/18/2004 9:40 EDT Hospital Encounter [facility] - Other [address] [place] [address] Tona Molina, [facility] [place], [place] [address] Social History Tobacco Use Types Packs/Day Years [...]
--- NOTE | 2024-03-27 15:39 | DI.RAD_ITS ---
Exam(s) XR HIP RT COMPLETE AP PELVIS EXAM: XR HIP RT COMPLETE AP PELVIS CLINICAL HISTORY: PAIN RT HIP JOINT, [id number]. TECHNIQUE: 2D digital imaging was performed. Two views COMPARISON: No exams were available for comparison FINDINGS: BONES: No acute fracture is present. No bony destructive lesion is seen. JOINTS: No dislocation present. The hip joint spaces are maintained. No significant degenerative c hanges. SOFT TISSUE: Normal. IUD noted. IMPRESSION: No acute abnormality. DATA REPOSITORY: RADIATION DOSE DELIVERED:
== END 2024-03-27 00:38 ==
LOC: DI 00:20
PROVIDERS: PCP Family Medicine; Visit Provider Family Medicine
DX: M25.551 Pain in right hip (principal)
CPT/HCPCS: 73502

== ENCOUNTER 2024-11-17 16:41 | Outpatient (REF) | payer BC, SELFPAY ==
[2024-11-17 15:53] LABS: ALT 20 U/L (14-59); AST 13 U/L (15-37); Albumin 3.7 g/dL (3.4-5.0); Alkaline Phosphatase 52 U/L (46-116); Anion Gap 2.6 mmol/L (3-11); BUN 16 mg/dL (7-18); Bilirubin, Total 0.3 mg/dL (0.2-1.0); CO2 31.4 mmol/L (21.0-32.0); CREATININE 0.9 mg/dL (0.55-1.02); Calcium 9.1 mg/dL (8.5-10.1); Calculated LDL 66 mg/dL (<100); Chloride 107 mmol/L (98-107); Cholesterol 154 mg/dL (<200); Estimated GFR 79.35 (mL/min/1.73m2); Glucose 83 mg/dL (74-106); HDL Cholesterol 78 mg/dL (>or=50); Potassium 4.7 mmol/L (3.5-5.1); Sodium 141 mmol/L (136-145); Total Protein 6.6 g/dL (6.4-8.2); Triglyceride 52 mg/dL (<150); Vitamin D 25 Total 85 ng/mL (30-100)
== END 2024-11-17 16:42 | disposition home or self-care (01) ==
LOC: NCHCN 16:41
PROVIDERS: PCP Family Medicine; Visit Provider Family Medicine
DX: Z00.00 Encounter for general adult medical examination without abnormal findings (principal)
CPT/HCPCS: 80053; 80061; 82306

== ENCOUNTER 2025-01-11 09:48 | Outpatient (CLI) | payer BC, SELFPAY ==
--- NOTE | 2025-01-11 09:00 | DI.RAD_ITS ---
Exam(s) XR FINGER RT LITTLE EXAM: XR FINGER RT LITTLE CLINICAL HISTORY: RIGHT LITTLE FINGER PAIN. TECHNIQUE: 2D digital imaging was performed of the right finger. Three views were obtained. PA/AP, oblique, and lateral views were obtained. COMPARISON: No exams were available for comparison FINDINGS: BONES: There is disruption of the cortex at the ulnar aspect of the head of the proximal phalanx of the right little finger. The bones are normally mineralized. JOINTS: No dislocation present. SOFT TISSUE: Normal. No soft tissue swelling or radiopaque foreign body is seen. No soft tissue gas is appreciated. IMPRESSION: Disruption of the cortex at the ulnar aspect of the head of the proximal phalanx of the right little finger. Differential considerations include acute fracture or destructive change related to infection or arthritis. Please correlate clinically. DATA REPOSITORY: RADIATION DOSE DELIVERED:
== END 2025-01-11 09:49 | disposition home or self-care (01) ==
LOC: DIORS 09:48
PROVIDERS: PCP Family Medicine; Referring Provider Family Medicine; Visit Provider Student in an Organized Health Care Education/Training Program
DX: S63.286A Dislocation of proximal interphalangeal joint of right little finger, initial encounter (principal)
CPT/HCPCS: 73140

== ENCOUNTER → 2025-07-23 00:02 | Outpatient (CLI) | payer BC, SELFPAY ==
--- NOTE | 2025-07-23 | DI.MAMMO_ITS ---
Exam(s) MAMMO SCREENING EXAM: MAMMO SCREENING CLINICAL HISTORY: SCREENING, Z12.31. TECHNIQUE: Bilateral full field digital CC and MLO mammographic images were obtained with 3D tomosynthesis and utilizing computer aided detection (CAD). COMPARISON: Prior outside mammograms were reviewed. FINDINGS: There has been no significant change in the appearance and distribution of the fibroglandular tissue. There are no new spiculated masses nor malignant appearing microcalcification groups. There is no significant architectural distortion nor skin thickening-retraction. IMPRESSION: No radiographic evidence of malignancy. BI-RADS Category 1 - Negative Breast Density - Category C - The breast are heterogeneously dense, which may obscure small masses. Breast density Category C or D implies that the patient has dense breast tissue. Dense breast tissue can make it harder to find cancer on a mammogram. Dense breast tissue is also associated with an increased risk of breast cancer. This information about the result of the mammogram report was provided to the patient to raise their awareness. Use this report when you speak with the patient about their risks for breast cancer, which includes their family history. At that time, you may recommend additional screening tests (Ultrasound or MRI) as these tests may add significant information. A negative radiographic report should not delay biopsy if a dominant or clinically suspicious mass is present. Up to ten percent of cancers are not identified on mammography. A negative report may reinforce clinical impression. Adenosis and dense breasts may obscure an underlying neoplasm. False positive reports average 6 to 10%. Patient will receive a letter notifying them of these results.
== END ==
LOC: DI 00:02
PROVIDERS: PCP Family Medicine; Visit Provider Obstetrics & Gynecology
DX: Z12.31 Encounter for screening mammogram for malignant neoplasm of breast (principal); R92.323 Mammographic fibroglandular density, bilateral breasts
CPT/HCPCS: 77063; 77067